=== PATIENT | female | born 1940 | race Two or more races ===

== ENCOUNTER 2017-08-05 16:27 | Inpatient (IN) | payer MEDICARE, OTHER ==
[~2017-08-05] VITALS: Ht 152.4 cm; Wt 90.0 kg
[~2017-08-05 16:27] MED LIST: AMOX-263 PO; CAR3125T PO; CLOP75TA28; DEXT1SYP9 PO; DIG0125T PO; FURO40TA; HYDR-1421; LISI10TA6; POTA8TAB2
[2017-08-05] MEDS ORDERED: ETOMIDATE (2MG/ML) 20ML VIAL IV ONE (16:30)
[2017-08-05] MEDS: MIDAZOLAM DRIP 50 mg/50mL 50 ML IV SCH ×2 (16:40→23:34)
[2017-08-05 17:11] LABS: Basophils # (auto) 0.1 uL; Basophils % (auto) 0.5 % (0.0-2.0); Eosinophils # (auto) 0.2 uL; Eosinophils % (auto) 1.6 % (0.0-7.0); Hematocrit 41.5 % (36.0-46.0); Hemoglobin 13.3 g/dL (12.2-16.2); Lymphocytes # (auto) 3.3 uL; Lymphocytes % (auto) 24.8 % (10.0-50.0); Mean Corpuscular Volume 93.8 fL (80.0-100.0); Monocytes # (auto) 0.8 uL; Monocytes % (auto) 5.7 % (0.0-12.0); Neutrophils % (auto) 67.4 % (37.0-80.0); Nucleated Red Blood Cells % 0.1 %; Platelet Count (auto) 178 10^3/uL (140-450); Red Blood Cells 4.42 10^6/uL (4.0-5.20); White Blood Cell 13.3 10^3/uL (4.4-10.8)
[2017-08-05] MEDS ORDERED: PROPOFOL 100 ML IV SCH ×2 (17:24→17:50)
[2017-08-05 17:32] LABS: Albumin 3.7 g/dL (3.4-5.0); BUN/Creatinine Ratio 22.1; Bilirubin, Total 0.8 mg/dL (0.2-1.0); Calcium 9.1 mg/dL (8.5-10.1); Magnesium 2.7 mg/dL (1.6-2.6); Potassium 5.3 mmol/L (3.5-5.1); Total Protein 8.1 g/dL (6.4-8.2)
[2017-08-05] MEDS ORDERED: AZITHROMYCIN 500MG/ 250ML 250 ML IV ONE (17:45)
[2017-08-05] MEDS ORDERED: cefTRIAXone 1GM/10ml IVPUSH 10 ML IV ONE (17:45)
[2017-08-05 17:50] LABS: Lactic Acid w/Reflex 4.8 mmol/L (0.4-2.0)
[2017-08-05 18:04] LABS: Urine Amorphous Crystal FEW /hpf (None Seen); Urine Bacteria NONE SEEN /hpf (None Seen); Urine Blood 2+ /uL (Negative); Urine Hyaline Cast MOD /lpf (0 - 2); Urine Mucus FEW (None Seen); Urine Specific Gravity 1.017 (1.001-1.035); Urine WBC 1 /hpf (0 - 5)
[2017-08-05] MEDS: PROPOFOL 100 ML IV SCH (18:07)
[2017-08-05 18:19] VITALS: BP 94/60
[2017-08-05] MEDS: NOREPINEPHRINE 8 MG/250ML KIT 250 ML IV SCH (19:25)
[2017-08-05 19:38] VITALS: BP 94/60
[2017-08-05 20:14] VITALS: BP 91/70
[2017-08-05] MEDS ORDERED: ACETAMINOPHEN 650 MG RECT SUPP PR ONE (20:45)
[2017-08-05 22:30] VITALS: BP 116/68
[2017-08-05] MEDS ORDERED: IBUPROFEN 100MG/5ML ORAL SUSP 100 MG/5 ML UD GT ONE (22:30)
[2017-08-05] MEDS ORDERED: ONDANSETRON HCL 4 MG/2 ML VIAL IV PRN (23:30)
[2017-08-05] MEDS ORDERED: LORazepam 2MG/ML-1ML VIAL IV PRN (23:30)
[2017-08-05] MEDS ORDERED: DEXTROSE (50%) 50ML SYRG IV PRN (23:30)
[2017-08-05] MEDS ORDERED: MORPHINE SULFATE 4 MG/ML SYR/VIAL IV PRN (23:30)
[2017-08-05] MEDS ORDERED: HYDROcodone-ACET 5/325MG TAB PO PRN (23:30)
[2017-08-05] MEDS ORDERED: FUROSEMIDE 20 MG/2 ML VIAL IV ONE (23:45)
[2017-08-06] VITALS (91 sets, daily range): BP systolic 83–153; BP diastolic 31–106
[2017-08-06] MEDS: ACCU-CHEK COMFORT CURVE STRIP VI SCH ×4 (00:06→23:58)
[2017-08-06] MEDS: InsuLIN REG 1unit/0.01ml Soln (100units/ml) SC SCH ×4 (00:10→23:58)
[2017-08-06] MEDS: ALBUTEROL SULF 2.5 MG/0.5ML(0.5%) NEB SOLN NEB SCH ×3 (00:25→12:32)
[2017-08-06] MEDS: IPRATROPIUM BROM 0.5 MG/2.5ML INH SOL NEB SCH ×4 (00:25→22:32)
[2017-08-06 00:50] LABS: BUN/Creatinine Ratio 22.7; Potassium 4.7 mmol/L (3.5-5.1)
[2017-08-06 07:12] LABS: Basophils # (auto) 0.1 uL; Basophils % (auto) 0.7 % (0.0-2.0); Eosinophils # (auto) 0 uL; Eosinophils % (auto) 0.2 % (0.0-7.0); Hematocrit 42.1 % (36.0-46.0); Hemoglobin 13.7 g/dL (12.2-16.2); Lymphocytes # (auto) 4.2 uL; Mean Corpuscular Hemoglobin 30.1 pg (28.0-32.0); Mean Corpuscular Hgb Conc. 32.6 g/dL (32.0-36.0); Mean Corpuscular Volume 92.3 fL (80.0-100.0); Monocytes # (auto) 1.2 uL; Monocytes % (auto) 8.2 % (0.0-12.0); Neutrophils # (auto) 9.4 uL; Neutrophils % (auto) 62.9 % (37.0-80.0); Nucleated Red Blood Cells % 0.1 %; Platelet Count (auto) 123 10^3/uL (140-450); Red Blood Cells 4.57 10^6/uL (4.0-5.20); Red Cell Distribution Width 15.9 % (11.8-14.3)
[2017-08-06] MEDS ORDERED: ENOXAPARIN SOD 30 MG/0.3 ML SYRINGE SC SCH (10:00)
[2017-08-06] MEDS ORDERED: ENOXAPARIN SOD 40 MG/0.4 ML SYRINGE SC SCH (10:00)
[2017-08-06] MEDS: DIGOXIN 0.125 MG TAB PO SCH (11:16)
[2017-08-06] MEDS: PANTOPRAZOLE 40 MG/10 ML VIAL IV SCH (11:16)
[2017-08-06] MEDS ORDERED: DIGOXIN (250MCG/ML) 2 ML AMPULE IV SCH (12:00)
[2017-08-06] MEDS ORDERED: DIGOXIN (250MCG/ML) 2 ML AMPULE IV ONE (14:00)
[2017-08-06] MEDS: PROPOFOL 100 ML IV SCH (17:48)
[2017-08-06] MEDS: NOREPINEPHRINE 8 MG/250ML KIT 250 ML IV SCH (18:55)
[2017-08-06] MEDS: DIGOXIN (250MCG/ML) 2 ML AMPULE IV SCH (20:31)
[2017-08-06] MEDS: AZITHROMYCIN 500MG/ 250ML 250 ML IV SCH (21:30)
[2017-08-06] MEDS: ACETAMINOPHEN 500 MG TAB PO PRN (21:31)
[2017-08-06] MEDS ORDERED: cefTRIAXone 1GM/10ml IVPUSH 10 ML IV SCH (22:00)
[2017-08-06] MEDS: LEVALBUTEROL HYDROCHLORIDE 0.63 MG/3 ML NEB SOLN NEB SCH (22:32)
[2017-08-07] VITALS (104 sets, daily range): BP systolic 87–168; BP diastolic 0–99
[2017-08-07] MEDS: DIGOXIN (250MCG/ML) 2 ML AMPULE IV SCH (02:04)
[2017-08-07] MEDS: PROPOFOL 100 ML IV SCH ×2 (02:30→18:30)
[2017-08-07] MEDS: ACETAMINOPHEN 500 MG TAB PO PRN (03:47)
[2017-08-07 04:05] LABS: Basophils # (auto) 0 uL; Basophils % (auto) 0.4 % (0.0-2.0); Eosinophils # (auto) 0.1 uL; Eosinophils % (auto) 1.2 % (0.0-7.0); Hematocrit 38.6 % (36.0-46.0); Hemoglobin 12.8 g/dL (12.2-16.2); Lymphocytes # (auto) 1.4 uL; Lymphocytes % (auto) 14.7 % (10.0-50.0); Mean Corpuscular Hemoglobin 30.7 pg (28.0-32.0); Mean Corpuscular Hgb Conc. 33.3 g/dL (32.0-36.0); Mean Corpuscular Volume 92.3 fL (80.0-100.0); Monocytes # (auto) 0.5 uL; Monocytes % (auto) 5.3 % (0.0-12.0); Neutrophils # (auto) 7.7 uL; Neutrophils % (auto) 78.4 % (37.0-80.0); Nucleated Red Blood Cells % 0.1 %; Platelet Count (auto) 112 10^3/uL (140-450); Red Blood Cells 4.18 10^6/uL (4.0-5.20); Red Cell Distribution Width 15.8 % (11.8-14.3); White Blood Cell 9.8 10^3/uL (4.4-10.8)
[2017-08-07 04:27] LABS: Potassium 4.5 mmol/L (3.5-5.1)
[2017-08-07 04:33] LABS: Albumin 3.4 g/dL (3.4-5.0); BUN/Creatinine Ratio 28.4; Calcium 9.2 mg/dL (8.5-10.1); Total Protein 7.9 g/dL (6.4-8.2)
[2017-08-07] MEDS: InsuLIN REG 1unit/0.01ml Soln (100units/ml) SC SCH ×3 (05:44→18:00)
[2017-08-07] MEDS: ACCU-CHEK COMFORT CURVE STRIP VI SCH ×3 (05:44→18:00)
[2017-08-07] MEDS: LEVALBUTEROL HYDROCHLORIDE 0.63 MG/3 ML NEB SOLN NEB SCH ×3 (05:56→22:30)
[2017-08-07] MEDS: IPRATROPIUM BROM 0.5 MG/2.5ML INH SOL NEB SCH ×3 (05:56→22:30)
[2017-08-07] MEDS ORDERED: OPTISON 3ml Vial for INJ IV ONE (09:21)
[2017-08-07] MEDS ORDERED: ENOXAPARIN SOD 40 MG/0.4 ML SYRINGE SC SCH (10:00)
[2017-08-07] MEDS ORDERED: CLOPIDOGREL BISULFATE 75 MG TAB GT SCH (10:00)
[2017-08-07] MEDS ORDERED: FUROSEMIDE 40 MG/4 ML VIAL IV SCH (10:00)
[2017-08-07 10:33] LABS: Prothrombin Time 10.9 sec (9.37-12.3)
[2017-08-07] MEDS: PANTOPRAZOLE 40 MG/10 ML VIAL IV SCH (10:36)
[2017-08-07] MEDS: DIGOXIN 0.125 MG TAB PO SCH (10:37)
[2017-08-07] MEDS ORDERED: FUROSEMIDE 20 MG/2 ML VIAL ONE (11:06)
[2017-08-07] MEDS: DOBUTamine 1000MCG/ML 250 ML IV SCH (16:00)
[2017-08-07] MEDS: MIDAZOLAM DRIP 50 mg/50mL 50 ML IV SCH (16:29)
[2017-08-07] MEDS: NOREPINEPHRINE 8 MG/250ML KIT 250 ML IV SCH (18:55)
[2017-08-07] MEDS ORDERED: VANCOMYCIN PER PHARMACY 0 MG IV SCH (20:30)
[2017-08-07] MEDS: VANCOMYCIN 1GM/250ML 250 ML IV SCH (22:12)
[2017-08-07] MEDS: AZITHROMYCIN 500MG/ 250ML 250 ML IV SCH (22:13)
[2017-08-08] VITALS (95 sets, daily range): BP systolic 80–127; BP diastolic 34–85
[2017-08-08] MEDS: PIPERACILLIN-TAZOB 2.25GM 50 ML IV SCH ×4 (00:17→18:17)
[2017-08-08] MEDS: ACCU-CHEK COMFORT CURVE STRIP VI SCH ×4 (00:18→17:06)
[2017-08-08] MEDS: PROPOFOL 100 ML IV SCH ×3 (01:48→21:49)
[2017-08-08 03:48] LABS: Basophils # (auto) 0.1 uL; Basophils % (auto) 0.7 % (0.0-2.0); Eosinophils # (auto) 0.3 uL; Eosinophils % (auto) 3.8 % (0.0-7.0); Hematocrit 38.3 % (36.0-46.0); Hemoglobin 12.7 g/dL (12.2-16.2); Lymphocytes # (auto) 1.6 uL; Lymphocytes % (auto) 20.3 % (10.0-50.0); Mean Corpuscular Hemoglobin 29.9 pg (28.0-32.0); Mean Corpuscular Hgb Conc. 33.1 g/dL (32.0-36.0); Mean Corpuscular Volume 90.4 fL (80.0-100.0); Monocytes # (auto) 0.7 uL; Monocytes % (auto) 8.9 % (0.0-12.0); Neutrophils # (auto) 5.1 uL; Neutrophils % (auto) 66.3 % (37.0-80.0); Nucleated Red Blood Cells % 0.1 %; Platelet Count (auto) 113 10^3/uL (140-450); Red Blood Cells 4.24 10^6/uL (4.0-5.20); Red Cell Distribution Width 15.6 % (11.8-14.3); White Blood Cell 7.7 10^3/uL (4.4-10.8)
[2017-08-08 04:00] LABS: Potassium 3.6 mmol/L (3.5-5.1)
[2017-08-08 04:03] LABS: BUN/Creatinine Ratio 34.8
[2017-08-08 04:13] LABS: Total Protein 6.9 g/dL (6.4-8.2)
[2017-08-08] MEDS: LEVALBUTEROL HYDROCHLORIDE 0.63 MG/3 ML NEB SOLN NEB SCH (05:52)
[2017-08-08] MEDS: IPRATROPIUM BROM 0.5 MG/2.5ML INH SOL NEB SCH ×3 (05:52→22:19)
[2017-08-08] MEDS: InsuLIN REG 1unit/0.01ml Soln (100units/ml) SC SCH ×4 (06:00→18:47)
[2017-08-08 07:21] LABS: Urine Bacteria MOD /hpf (None Seen); Urine Blood 3+ /uL (Negative); Urine Mucus FEW (None Seen); Urine Specific Gravity 1.024 (1.001-1.035); Urine WBC 30 /hpf (0 - 5)
[2017-08-08] MEDS: DOBUTamine 1000MCG/ML 250 ML IV SCH ×2 (07:58→23:00)
[2017-08-08] MEDS ORDERED: FUROSEMIDE 40 MG/4 ML VIAL IV SCH (10:00)
[2017-08-08] MEDS ORDERED: Diabetisource AC 1 Liter GT SCH (10:30)
[2017-08-08] MEDS: CLOPIDOGREL BISULFATE 75 MG TAB GT SCH (10:45)
[2017-08-08] MEDS: POTASSIUM CHL 10% (20 MEQ/15ML) 15ml ORAL SOLN GT SCH ×2 (10:52→22:15)
[2017-08-08] MEDS: DIGOXIN 0.125 MG TAB PO SCH (10:53)
[2017-08-08] MEDS: PANTOPRAZOLE 40 MG/10 ML VIAL IV SCH (10:53)
[2017-08-08] MEDS: NOREPINEPHRINE 8 MG/250ML KIT 250 ML IV SCH ×2 (11:00→21:49)
[2017-08-08] MEDS: FREE WATER GT SCH ×2 (12:07→18:17)
[2017-08-08] MEDS: LEVALBUTEROL HCL 1.25 MG/3 ML NEB IN SCH ×2 (13:32→22:20)
[2017-08-08] MEDS: MIDAZOLAM DRIP 50 mg/50mL 50 ML IV SCH (17:06)
[2017-08-08] MEDS: FUROSEMIDE 40 MG/4 ML VIAL IV SCH ×2 (18:36→22:15)
[2017-08-08] MEDS: AZITHROMYCIN 500MG/ 250ML 250 ML IV SCH (22:16)
[2017-08-08] MEDS: VANCOMYCIN 1GM/250ML 250 ML IV SCH (22:30)
[2017-08-09] VITALS (88 sets, daily range): BP systolic 87–142; BP diastolic 34–91
[2017-08-09] MEDS: PROPOFOL 100 ML IV SCH (00:05)
[2017-08-09] MEDS: IPRATROPIUM BROM 0.5 MG/2.5ML INH SOL NEB SCH ×3 (05:50→22:39)
[2017-08-09] MEDS: FREE WATER GT SCH ×4 (06:00→17:58)
[2017-08-09] MEDS: InsuLIN REG 1unit/0.01ml Soln (100units/ml) SC SCH ×2 (06:00→17:58)
[2017-08-09] MEDS: DOBUTamine 1000MCG/ML 250 ML IV SCH ×2 (06:10→13:40)
[2017-08-09] MEDS: PIPERACILLIN-TAZOB 2.25GM 50 ML IV SCH ×4 (06:26→17:58)
[2017-08-09] MEDS: FUROSEMIDE 40 MG/4 ML VIAL IV SCH ×3 (06:26→21:00)
[2017-08-09] MEDS: ACCU-CHEK COMFORT CURVE STRIP VI SCH ×2 (06:26→17:59)
[2017-08-09 07:33] LABS: Basophils # (auto) 0 uL; Basophils % (auto) 0.6 % (0.0-2.0); Eosinophils # (auto) 0.3 uL; Eosinophils % (auto) 4.6 % (0.0-7.0); Hematocrit 38.9 % (36.0-46.0); Hemoglobin 12.9 g/dL (12.2-16.2); Lymphocytes # (auto) 1.2 uL; Lymphocytes % (auto) 20.3 % (10.0-50.0); Mean Corpuscular Hemoglobin 30.1 pg (28.0-32.0); Mean Corpuscular Hgb Conc. 33.2 g/dL (32.0-36.0); Mean Corpuscular Volume 90.5 fL (80.0-100.0); Monocytes # (auto) 0.7 uL; Monocytes % (auto) 11.1 % (0.0-12.0); Neutrophils # (auto) 3.9 uL; Neutrophils % (auto) 63.4 % (37.0-80.0); Platelet Count (auto) 138 10^3/uL (140-450); Red Cell Distribution Width 15.6 % (11.8-14.3); White Blood Cell 6.2 10^3/uL (4.4-10.8)
[2017-08-09 07:49] LABS: BUN/Creatinine Ratio 30.9; Bilirubin, Total 0.8 mg/dL (0.2-1.0); Calcium 9.2 mg/dL (8.5-10.1); Potassium 3.9 mmol/L (3.5-5.1); Total Protein 7.4 g/dL (6.4-8.2)
[2017-08-09] MEDS: DIGOXIN 0.125 MG TAB PO SCH (10:00)
[2017-08-09] MEDS: CLOPIDOGREL BISULFATE 75 MG TAB GT SCH (10:00)
[2017-08-09] MEDS: POTASSIUM CHL 10% (20 MEQ/15ML) 15ml ORAL SOLN GT SCH ×2 (10:00→22:00)
[2017-08-09] MEDS: PANTOPRAZOLE 40 MG/10 ML VIAL IV SCH (10:00)
[2017-08-09] MEDS: DEXMEDETOMIDINE HCL 400 MCG in D5W 5% 96 ML IV SCH (11:37)
[2017-08-09] MEDS: MIDAZOLAM DRIP 50 mg/50mL 50 ML IV SCH (16:29)
[2017-08-09] MEDS: NOREPINEPHRINE 8 MG/250ML KIT 250 ML IV SCH (19:39)
[2017-08-09] MEDS: AZITHROMYCIN 500MG/ 250ML 250 ML IV SCH (21:01)
[2017-08-09] MEDS: VANCOMYCIN 1GM/250ML 250 ML IV SCH (22:00)
[2017-08-09] MEDS: LEVALBUTEROL HCL 1.25 MG/3 ML NEB IN SCH (22:39)
[2017-08-10] VITALS (74 sets, daily range): BP systolic 92–135; BP diastolic 36–77
[2017-08-10] MEDS: DOBUTamine 1000MCG/ML 250 ML IV SCH ×2 (05:03→21:49)
[2017-08-10] MEDS: FREE WATER GT SCH ×3 (05:41→12:00)
[2017-08-10] MEDS: PIPERACILLIN-TAZOB 2.25GM 50 ML IV SCH ×4 (05:42→18:00)
[2017-08-10] MEDS: FUROSEMIDE 40 MG/4 ML VIAL IV SCH ×3 (05:42→21:51)
[2017-08-10] MEDS: InsuLIN REG 1unit/0.01ml Soln (100units/ml) SC SCH ×2 (06:00→18:10)
[2017-08-10] MEDS: ACCU-CHEK COMFORT CURVE STRIP VI SCH ×2 (06:00→18:10)
[2017-08-10] MEDS: LEVALBUTEROL HCL 1.25 MG/3 ML NEB IN SCH ×3 (06:23→22:24)
[2017-08-10] MEDS: IPRATROPIUM BROM 0.5 MG/2.5ML INH SOL NEB SCH ×3 (06:23→22:24)
[2017-08-10] MEDS: DEXMEDETOMIDINE HCL 400 MCG in D5W 5% 96 ML IV SCH (08:46)
[2017-08-10] MEDS: CLOPIDOGREL BISULFATE 75 MG TAB GT SCH (10:25)
[2017-08-10] MEDS: PANTOPRAZOLE 40 MG/10 ML VIAL IV SCH (10:25)
[2017-08-10] MEDS: POTASSIUM CHL 10% (20 MEQ/15ML) 15ml ORAL SOLN GT SCH ×2 (10:25→21:50)
[2017-08-10] MEDS: DIGOXIN 0.125 MG TAB PO SCH (10:26)
[2017-08-10] MEDS: NOREPINEPHRINE 8 MG/250ML KIT 250 ML IV SCH (18:55)
[2017-08-10] MEDS: AZITHROMYCIN 500MG/ 250ML 250 ML IV SCH (21:51)
[2017-08-10] MEDS: VANCOMYCIN 1GM/250ML 250 ML IV SCH (23:41)
[2017-08-11] VITALS (41 sets, daily range): BP systolic 107–154; BP diastolic 46–87
[2017-08-11] MEDS: IPRATROPIUM BROM 0.5 MG/2.5ML INH SOL NEB SCH (05:44)
[2017-08-11] MEDS: LEVALBUTEROL HCL 1.25 MG/3 ML NEB IN SCH (05:44)
[2017-08-11] MEDS: ACCU-CHEK COMFORT CURVE STRIP VI SCH (06:00)
[2017-08-11] MEDS: PIPERACILLIN-TAZOB 2.25GM 50 ML IV SCH ×2 (06:00)
[2017-08-11] MEDS: InsuLIN REG 1unit/0.01ml Soln (100units/ml) SC SCH (06:00)
[2017-08-11] MEDS: FUROSEMIDE 40 MG/4 ML VIAL IV SCH ×2 (06:30→13:52)
[2017-08-11] MEDS: CLOPIDOGREL BISULFATE 75 MG TAB GT SCH (10:29)
[2017-08-11] MEDS: POTASSIUM CHL 10% (20 MEQ/15ML) 15ml ORAL SOLN GT SCH (10:29)
[2017-08-11] MEDS: DIGOXIN 0.125 MG TAB PO SCH (10:29)
[2017-08-11] MEDS: PANTOPRAZOLE 40 MG/10 ML VIAL IV SCH (10:29)
[2017-08-11] MEDS ORDERED: METO50TA7 PO (10:58)
[2017-08-11] MEDS ORDERED: POTA10TA51 PO (10:58)
[2017-08-11] MEDS ORDERED: FURO40TA4 PO (10:58)
[2017-08-11] MEDS ORDERED: METOPROLOL SUCCINATE XL 50 MG TAB PO ONE (11:00)
[2017-08-11] MEDS ORDERED: VANCOMYCIN 1,250 MG in D5W 5% 250 ML IV SCH (22:00)
[2017-08-12] MEDS ORDERED: METOPROLOL SUCCINATE XL 50 MG TAB PO SCH (10:00)
[2017-08-29] MEDS ORDERED: PANT40T PO (11:01)
== END 2017-08-11 13:35 | disposition home health service (06) | DRG 871 ==
LOC: EDBD 16:27 → ER 16:27 → TELE 16:28 → ICU WEST 23:54
PROVIDERS: ADMIT Nurse Practitioner Family; ATTEND Internal Medicine
PROC: 5A1945Z Respiratory Ventilation, 24-96 Consecutive Hours (ICD-10-PCS; principal; 2017-08-05)
PROC: 0BH17EZ Insertion of Endotracheal Airway into Trachea, Via Natural or Artificial Opening (ICD-10-PCS; 2017-08-05)
DX: A41.9 Sepsis, unspecified organism (principal); J96.01 Acute respiratory failure with hypoxia; I50.43 Acute on chronic combined systolic (congestive) and diastolic (congestive) heart failure; N17.9 Acute kidney failure, unspecified; J18.9 Pneumonia, unspecified organism; E11.22 Type 2 diabetes mellitus with diabetic chronic kidney disease; I48.0 Paroxysmal atrial fibrillation; E11.65 Type 2 diabetes mellitus with hyperglycemia; I48.1 Persistent atrial fibrillation; I13.0 Hypertensive heart and chronic kidney disease with heart failure and stage 1 through stage 4 chronic kidney disease, or unspecified chronic kidney disease; I48.92 Unspecified atrial flutter; J44.0 Chronic obstructive pulmonary disease with (acute) lower respiratory infection; I42.0 Dilated cardiomyopathy; I42.7 Cardiomyopathy due to drug and external agent; N39.0 Urinary tract infection, site not specified; E87.5 Hyperkalemia; Z68.38 Body mass index [BMI] 38.0-38.9, adult; E66.9 Obesity, unspecified; E78.5 Hyperlipidemia, unspecified; G20 Parkinson's disease; G47.30 Sleep apnea, unspecified; I25.10 Atherosclerotic heart disease of native coronary artery without angina pectoris; I25.5 Ischemic cardiomyopathy; I27.20 Pulmonary hypertension, unspecified; I34.0 Nonrheumatic mitral (valve) insufficiency; K42.9 Umbilical hernia without obstruction or gangrene; K43.9 Ventral hernia without obstruction or gangrene; N18.3 Chronic kidney disease, stage 3 (moderate); T45.1X5A Adverse effect of antineoplastic and immunosuppressive drugs, initial encounter; Z79.899 Other long term (current) drug therapy; Z85.3 Personal history of malignant neoplasm of breast; Z86.73 Personal history of transient ischemic attack (TIA), and cerebral infarction without residual deficits; Z99.81 Dependence on supplemental oxygen; Z90.12 Acquired absence of left breast and nipple
CPT/HCPCS: 31500; 36415; 36600; 71045; 80048; 80053; 80162; 80202; 81001; 82805; 82962; 83036; 83605; 83735; 83880; 84484; 85025; 85379; 85610; 85730; 87040; 87070; 87081; 87086; 87205; 92610; 93005; 93306; 94002; 94003; 94640; 96365; 96366; 97163; 99291; C9113; J1815; J2250; J2543; J2704; J7060; Q9956

== ENCOUNTER 2017-12-13 19:29 | Inpatient (IN) | payer MEDICARE ==
[~2017-12-13] VITALS: Ht 160 cm; Wt 88.0 kg
[~2017-12-13 19:29] MED LIST changes: -AMOX-263 PO; -CAR3125T PO; -CLOP75TA28; -DEXT1SYP9 PO; -FURO40TA; +FURO40TA4 PO; +LEVO500T21 PO; +MET5XLT PO; +METF-370 PO; +PANT40T PO; +POTA10TA51 PO; -POTA8TAB2; +SACC250C PO
[2017-12-13 19:45] VITALS: BP 129/91
[2017-12-13] MEDS ORDERED: ETOMIDATE (2MG/ML) 20ML VIAL IV ONE ×2 (19:46→20:00)
[2017-12-13] MEDS ORDERED: SUCCINYLCHOLINE CHLORIDE 20 MG/ML 10ML VIAL IV ONE (20:00)
[2017-12-13] MEDS ORDERED: DILTIAZEM HCL 25 MG/5 ML VIAL IV ONE ×2 (20:00→20:45)
[2017-12-13] MEDS ORDERED: methylPREDNISolone SOD SUCC 125 MG/2 ML VL IV ONE (20:00)
[2017-12-13] MEDS: PROPOFOL 100 ML IV SCH (20:19)
[2017-12-13] MEDS ORDERED: ROCURONIUM 10MG/ML 10ML VIAL IV ONE ×2 (20:34→20:45)
[2017-12-13 20:35] LABS: Basophils # (auto) 0.1 uL; Basophils % (auto) 0.6 % (0.0-2.0); Eosinophils # (auto) 0.3 uL; Hematocrit 38.1 % (36.0-46.0); Hemoglobin 12.2 g/dL (12.2-16.2); Lymphocytes # (auto) 7.2 uL; Mean Corpuscular Hemoglobin 28.8 pg (28.0-32.0); Monocytes % (auto) 6.3 % (0.0-12.0); Neutrophils # (auto) 7.4 uL; Neutrophils % (auto) 46.1 % (37.0-80.0); Nucleated Red Blood Cells % 0.1 %; Platelet Count (auto) 196 10^3/uL (140-450); Red Blood Cells 4.23 10^6/uL (4.0-5.20); Red Cell Distribution Width 17.4 % (11.8-14.3); White Blood Cell 16.1 10^3/uL (4.4-10.8)
[2017-12-13 20:47] LABS: Albumin 4.2 g/dL (3.4-5.0); BUN/Creatinine Ratio 22.5; Bilirubin, Total 0.5 mg/dL (0.2-1.0); Calcium 9.7 mg/dL (8.5-10.1); INR 0.93 (0.9-1.15); Magnesium 2.8 mg/dL (1.6-2.6); Partial Thromboplastin Time 26.6 sec (23.78-33.04); Potassium 4.5 mmol/L (3.5-5.1); Total Protein 8.7 g/dL (6.4-8.2)
[2017-12-13] MEDS ORDERED: METOPROLOL TARTRATE 1MG/1ML-5ML VIAL IV ONE (21:15)
[2017-12-13 23:15] LABS: Lactic Acid w/Reflex 4.9 mmol/L (0.4-2.0)
[2017-12-13] MEDS ORDERED: LEVOFLOXACIN 250MG 50 ML IV ONE (23:15)
[2017-12-13] MEDS ORDERED: FUROSEMIDE 40 MG/4 ML VIAL IV ONE (23:15)
[2017-12-13] MEDS ORDERED: ONDANSETRON HCL 4 MG/2 ML VIAL IV PRN (23:15)
[2017-12-13] MEDS ORDERED: ALBUTEROL SULF 2.5 MG/0.5ML(0.5%) NEB SOLN NEB PRN (23:15)
[2017-12-13] MEDS ORDERED: DEXTROSE (50%) 50ML SYRG IV PRN (23:15)
[2017-12-13] MEDS ORDERED: MORPHINE SULF INJ 2 MG/ML SYRINGE 1ML IV PRN (23:15)
[2017-12-13] MEDS ORDERED: NITROGLYCERIN 0.4 MG SL TAB SL PRN (23:15)
[2017-12-13] MEDS ORDERED: IPRATROPIUM BROM 0.5 MG/2.5ML INH SOL NEB PRN (23:15)
[2017-12-13] MEDS: MIDAZOLAM DRIP 50 mg/50mL 50 ML IV SCH (23:30)
[2017-12-13] MEDS: fentaNYL Drip 2500mCg/250mlNS 250 ML IV SCH (23:30)
[2017-12-13] MEDS ORDERED: AMIODARONE HCL 900 MG in DEXTROSE 500 ML IV SCH (23:43)
[2017-12-13] MEDS ORDERED: AMIODARONE HCL 150 MG in D5W 5% 100 ML IV ONE (23:45)
[2017-12-13] MEDS ORDERED: SODIUM CHLORIDE 0.9% 500 ML IV ONE (23:45)
[2017-12-13] MEDS ORDERED: MIDAZOLAM DRIP 50 mg/50mL 50 ML IV ONE (23:50)
[2017-12-13] MEDS ORDERED: fentaNYL Drip 2500mCg/250mlNS 250 ML IV ONE (23:51)
[2017-12-14] VITALS (73 sets, daily range): BP systolic 87–169; BP diastolic 53–94
[2017-12-14] MEDS ORDERED: AMIODARONE HCL (50 MG/ ML) 3 ML VIAL IV ONE ×2 (00:27→00:28)
[2017-12-14] MEDS: InsuLIN REG 1unit/0.01ml Soln (100units/ml) SC SCH ×4 (00:29→18:23)
[2017-12-14] MEDS: ACCU-CHEK COMFORT CURVE STRIP VI SCH ×4 (00:29→18:23)
[2017-12-14] MEDS: NOREPINEPHRINE 8 MG/250ML KIT 250 ML IV SCH ×2 (01:37→12:11)
[2017-12-14] MEDS: SODIUM CHLORIDE 0.9% 1,000 ML IV SCH ×2 (01:50→16:25)
[2017-12-14 02:50] LABS: Urine Bacteria MOD /hpf (None Seen); Urine Blood 2+ /uL (Negative); Urine Hyaline Cast MANY /lpf (0 - 2); Urine Mucus FEW (None Seen); Urine Specific Gravity 1.011 (1.001-1.035); Urine WBC 1 /hpf (0 - 5)
[2017-12-14] MEDS ORDERED: AMIODARONE HCL 900 MG in DEXTROSE 500 ML IV SCH (05:43)
[2017-12-14 07:22] LABS: Basophils # (auto) 0 uL; Eosinophils # (auto) 0 uL; Hematocrit 38.6 % (36.0-46.0); Hemoglobin 12.2 g/dL (12.2-16.2); Lymphocytes # (auto) 1.9 uL; Lymphocytes % (auto) 9.6 % (10.0-50.0); Mean Corpuscular Hemoglobin 27.9 pg (28.0-32.0); Mean Corpuscular Hgb Conc. 31.6 g/dL (32.0-36.0); Mean Corpuscular Volume 88.2 fL (80.0-100.0); Monocytes # (auto) 0.3 uL; Monocytes % (auto) 1.5 % (0.0-12.0); Neutrophils # (auto) 17.9 uL; Neutrophils % (auto) 88.9 % (37.0-80.0); Platelet Count (auto) 198 10^3/uL (140-450); Red Blood Cells 4.38 10^6/uL (4.0-5.20); Red Cell Distribution Width 17.5 % (11.8-14.3); White Blood Cell 20.1 10^3/uL (4.4-10.8)
[2017-12-14] MEDS ORDERED: ENOXAPARIN SOD 80 MG/0.8ML SYRINGE SC ONE (07:30)
[2017-12-14 07:56] LABS: Albumin 3.4 g/dL (3.4-5.0); BUN/Creatinine Ratio 19.3; Bilirubin, Total 0.7 mg/dL (0.2-1.0); Calcium 8.9 mg/dL (8.5-10.1); Potassium 5.5 mmol/L (3.5-5.1); Total Protein 7.7 g/dL (6.4-8.2)
[2017-12-14] MEDS ORDERED: METOPROLOL TARTRATE 1MG/1ML-5ML VIAL IV ONE (10:25)
[2017-12-14] MEDS: ASPirin 81 mg TAB PO SCH (10:30)
[2017-12-14] MEDS: MIDAZOLAM DRIP 50 mg/50mL 50 ML IV SCH (10:30)
[2017-12-14] MEDS: METOPROLOL TARTRATE 1MG/1ML-5ML VIAL IV PRN ×2 (14:38→18:42)
[2017-12-14] MEDS: fentaNYL Drip 2500mCg/250mlNS 250 ML IV SCH (18:00)
[2017-12-14] MEDS ORDERED: DILTIAZEM 125mg/125ml BAG KIT 125 ML IV SCH (18:30)
[2017-12-14] MEDS ORDERED: DIGOXIN (250MCG/ML) 2 ML AMPULE ONE (18:51)
[2017-12-14] MEDS ORDERED: DIGOXIN (250MCG/ML) 2 ML AMPULE IV ONE ×2 (19:00→21:45)
[2017-12-14] MEDS ORDERED: VANCOMYCIN PER PHARMACY 0 MG IV SCH (19:30)
[2017-12-14] MEDS ORDERED: LEVOFLOXACIN 250MG 50 ML IV SCH (20:00)
[2017-12-14] MEDS ORDERED: VANCOMYCIN 1GM/250ML 250 ML IV ONE (21:30)
[2017-12-15] VITALS (107 sets, daily range): BP systolic 85–159; BP diastolic 31–109
[2017-12-15] MEDS: IPRATROPIUM BROM 0.5 MG/2.5ML INH SOL NEB SCH ×4 (00:21→18:27)
[2017-12-15] MEDS: ALBUTEROL SULF 2.5 MG/0.5ML(0.5%) NEB SOLN NEB SCH ×4 (00:21→18:28)
[2017-12-15] MEDS: ACCU-CHEK COMFORT CURVE STRIP VI SCH ×4 (00:45→18:00)
[2017-12-15] MEDS: InsuLIN REG 1unit/0.01ml Soln (100units/ml) SC SCH ×4 (01:13→19:04)
[2017-12-15 03:56] LABS: Basophils # (auto) 0 uL; Basophils % (auto) 0.3 % (0.0-2.0); Eosinophils # (auto) 0 uL; Hemoglobin 11.1 g/dL (12.2-16.2); Lymphocytes # (auto) 1.9 uL; Mean Corpuscular Hemoglobin 28.1 pg (28.0-32.0); Mean Corpuscular Hgb Conc. 31.7 g/dL (32.0-36.0); Mean Corpuscular Volume 88.7 fL (80.0-100.0); Monocytes % (auto) 7.5 % (0.0-12.0); Neutrophils # (auto) 10.4 uL; Neutrophils % (auto) 78.2 % (37.0-80.0); Nucleated Red Blood Cells % 0.1 %; Platelet Count (auto) 135 10^3/uL (140-450); Red Blood Cells 3.94 10^6/uL (4.0-5.20); Red Cell Distribution Width 17.4 % (11.8-14.3); White Blood Cell 13.3 10^3/uL (4.4-10.8)
[2017-12-15 04:11] LABS: INR 1.05 (0.9-1.15); Partial Thromboplastin Time 27.6 sec (23.78-33.04); Prothrombin Time 11.2 sec (9.27-12.13)
[2017-12-15 04:13] LABS: Calcium 8.2 mg/dL (8.5-10.1); Magnesium 2.4 mg/dL (1.6-2.6)
[2017-12-15 04:15] LABS: BUN/Creatinine Ratio 21.9
[2017-12-15 04:23] LABS: Lactic Acid w/Reflex 2.3 mmol/L (0.4-2.0)
[2017-12-15 04:35] LABS: Potassium 5.9 mmol/L (3.5-5.1)
[2017-12-15] MEDS: SODIUM CHLORIDE 0.9% 1,000 ML IV SCH ×2 (09:05→18:00)
[2017-12-15] MEDS: ASPirin 81 mg TAB PO SCH (10:06)
[2017-12-15] MEDS: cefTRIAXone 1GM/10ml IVPUSH 10 ML IV SCH (10:08)
[2017-12-15] MEDS: AZITHROMYCIN 500MG/ 250ML 250 ML IV SCH (10:11)
[2017-12-15] MEDS: ENOXAPARIN SOD 80 MG/0.8ML SYRINGE SC SCH (10:12)
[2017-12-15] MEDS ORDERED: SODIUM BICARBONATE 8.4 % INJ 50ML VIAL IV ONE (14:30)
[2017-12-15] MEDS ORDERED: InsuLIN REG 1unit/0.01ml Soln (100units/ml) SC ONE (14:30)
[2017-12-15] MEDS ORDERED: DEXTROSE (50%) 50ML SYRG IV ONE (14:30)
[2017-12-15] MEDS ORDERED: SODIUM POLYSTYRENE SULF 15GM/60ML SUSP PO ONE (14:30)
[2017-12-15] MEDS ORDERED: CALCIUM GLUC 4.65meq/50ml D5AE 50 ML IV ONE (14:30)
[2017-12-15] MEDS ORDERED: SODIUM BICARB 50ML SYR 50 ML in SOD CHL 0.45% 1,000 ML IV SCH (14:30)
[2017-12-15] MEDS ORDERED: LIDOCAINE 1% (LOCAL ANESTH.) PF 5ml SDV ID ONE (19:00)
[2017-12-15] MEDS ORDERED: VANCOMYCIN 1GM/250ML 250 ML IV ONE (21:00)
[2017-12-15 21:56] LABS: BUN/Creatinine Ratio 24.3; Calcium 8.2 mg/dL (8.5-10.1); Potassium 4.7 mmol/L (3.5-5.1)
[2017-12-15] MEDS: SODIUM CHLOR 0.9% PF (SALINE LOCK) 10ML VIAL/SYR IV SCH (22:00)
[2017-12-16] VITALS (118 sets, daily range): BP systolic 93–151; BP diastolic 30–75
[2017-12-16] MEDS: IPRATROPIUM BROM 0.5 MG/2.5ML INH SOL NEB SCH ×4 (00:24→18:30)
[2017-12-16] MEDS: ALBUTEROL SULF 2.5 MG/0.5ML(0.5%) NEB SOLN NEB SCH ×4 (00:24→18:30)
[2017-12-16 04:00] LABS: Basophils # (auto) 0 uL; Basophils % (auto) 0.4 % (0.0-2.0); Eosinophils # (auto) 0 uL; Eosinophils % (auto) 0.4 % (0.0-7.0); Hematocrit 28.1 % (36.0-46.0); Hemoglobin 9.2 g/dL (12.2-16.2); Lymphocytes # (auto) 1.2 uL; Lymphocytes % (auto) 11.5 % (10.0-50.0); Mean Corpuscular Hemoglobin 28.8 pg (28.0-32.0); Mean Corpuscular Volume 87.4 fL (80.0-100.0); Monocytes # (auto) 0.5 uL; Monocytes % (auto) 5.1 % (0.0-12.0); Neutrophils # (auto) 8.9 uL; Neutrophils % (auto) 82.6 % (37.0-80.0); Platelet Count (auto) 94 10^3/uL (140-450); Red Blood Cells 3.21 10^6/uL (4.0-5.20); Red Cell Distribution Width 17.8 % (11.8-14.3); White Blood Cell 10.7 10^3/uL (4.4-10.8)
[2017-12-16 04:24] LABS: Albumin 2.7 g/dL (3.4-5.0); BUN/Creatinine Ratio 25.3; Calcium 8.1 mg/dL (8.5-10.1); Potassium 4.4 mmol/L (3.5-5.1)
[2017-12-16 04:26] LABS: Bilirubin, Total 0.5 mg/dL (0.2-1.0); Total Protein 5.5 g/dL (6.4-8.2)
[2017-12-16] MEDS: InsuLIN REG 1unit/0.01ml Soln (100units/ml) SC SCH ×4 (06:00→18:00)
[2017-12-16] MEDS: ACCU-CHEK COMFORT CURVE STRIP VI SCH ×4 (06:18→18:15)
[2017-12-16] MEDS: ENOXAPARIN SOD 80 MG/0.8ML SYRINGE SC SCH (10:00)
[2017-12-16] MEDS: ASPirin 81 mg TAB PO SCH (10:43)
[2017-12-16] MEDS: cefTRIAXone 1GM/10ml IVPUSH 10 ML IV SCH (10:44)
[2017-12-16] MEDS: AZITHROMYCIN 500MG/ 250ML 250 ML IV SCH (10:44)
[2017-12-16] MEDS: MIDAZOLAM DRIP 50 mg/50mL 50 ML IV SCH ×2 (10:46→18:17)
[2017-12-16] MEDS: SODIUM CHLOR 0.9% PF (SALINE LOCK) 10ML VIAL/SYR IV SCH ×2 (10:47→21:39)
[2017-12-16] MEDS: SODIUM CHLORIDE 0.9% 1,000 ML IV SCH ×2 (10:47→14:00)
[2017-12-16] MEDS: AMIODARONE HCL 200 MG TAB PO SCH ×2 (15:35→21:39)
[2017-12-16] MEDS: PROPOFOL 100 ML IV SCH (19:59)
[2017-12-16] MEDS: fentaNYL Drip 2500mCg/250mlNS 250 ML IV SCH (23:30)
[2017-12-17] VITALS (85 sets, daily range): BP systolic 110–186; BP diastolic 47–117
[2017-12-17] MEDS: SODIUM CHLORIDE 0.9% 1,000 ML IV SCH ×3 (00:15→23:02)
[2017-12-17] MEDS: ACCU-CHEK COMFORT CURVE STRIP VI SCH ×5 (00:15→23:51)
[2017-12-17] MEDS: IPRATROPIUM BROM 0.5 MG/2.5ML INH SOL NEB SCH ×4 (00:20→18:32)
[2017-12-17] MEDS: ALBUTEROL SULF 2.5 MG/0.5ML(0.5%) NEB SOLN NEB SCH ×4 (00:20→18:33)
[2017-12-17] MEDS: NOREPINEPHRINE 8 MG/250ML KIT 250 ML IV SCH (00:52)
[2017-12-17] MEDS: InsuLIN REG 1unit/0.01ml Soln (100units/ml) SC SCH ×5 (06:30→23:51)
[2017-12-17 07:04] LABS: Basophils # (auto) 0 uL; Basophils % (auto) 0.3 % (0.0-2.0); Eosinophils # (auto) 0.1 uL; Eosinophils % (auto) 1.4 % (0.0-7.0); Hematocrit 28.7 % (36.0-46.0); Hemoglobin 9.6 g/dL (12.2-16.2); Lymphocytes % (auto) 11.1 % (10.0-50.0); Mean Corpuscular Hemoglobin 29.3 pg (28.0-32.0); Mean Corpuscular Hgb Conc. 33.4 g/dL (32.0-36.0); Mean Corpuscular Volume 87.5 fL (80.0-100.0); Monocytes # (auto) 0.5 uL; Monocytes % (auto) 5.1 % (0.0-12.0); Neutrophils # (auto) 7.5 uL; Neutrophils % (auto) 82.1 % (37.0-80.0); Platelet Count (auto) 94 10^3/uL (140-450); Red Blood Cells 3.28 10^6/uL (4.0-5.20); Red Cell Distribution Width 17.7 % (11.8-14.3); White Blood Cell 9.2 10^3/uL (4.4-10.8)
[2017-12-17 07:40] LABS: Albumin 2.7 g/dL (3.4-5.0); BUN/Creatinine Ratio 26.6; Calcium 8.2 mg/dL (8.5-10.1); Total Protein 6.1 g/dL (6.4-8.2)
[2017-12-17] MEDS ORDERED: VANCOMYCIN PER PHARMACY 0 MG IV ONE (08:30)
[2017-12-17] MEDS ORDERED: VANCOMYCIN 1GM/250ML 250 ML IV ONE (09:00)
[2017-12-17] MEDS ORDERED: VANCOMYCIN PER PHARMACY 0 MG IV SCH (09:15)
[2017-12-17] MEDS: VANCOMYCIN 1GM/250ML 250 ML IV SCH (09:49)
[2017-12-17] MEDS: AZITHROMYCIN 500MG/ 250ML 250 ML IV SCH (09:49)
[2017-12-17] MEDS: AMIODARONE HCL 200 MG TAB PO SCH ×2 (09:50→22:34)
[2017-12-17] MEDS: ASPirin 81 mg TAB PO SCH (09:50)
[2017-12-17] MEDS: ENOXAPARIN SOD 80 MG/0.8ML SYRINGE SC SCH (09:50)
[2017-12-17] MEDS: cefTRIAXone 1GM/10ml IVPUSH 10 ML IV SCH (09:50)
[2017-12-17] MEDS: SODIUM CHLOR 0.9% PF (SALINE LOCK) 10ML VIAL/SYR IV SCH ×2 (10:00→22:33)
[2017-12-17] MEDS: PROPOFOL 100 ML IV SCH (18:30)
[2017-12-17] MEDS: ACETYLCYSTEINE 10 %(100MG/ML) SOL 4ML NEB SCH (18:36)
[2017-12-17] MEDS: MIDAZOLAM DRIP 50 mg/50mL 50 ML IV SCH (23:30)
[2017-12-17] MEDS: fentaNYL Drip 2500mCg/250mlNS 250 ML IV SCH (23:30)
[2017-12-18] VITALS (90 sets, daily range): BP systolic 106–160; BP diastolic 41–104
[2017-12-18] MEDS: ACETYLCYSTEINE 10 %(100MG/ML) SOL 4ML NEB SCH ×4 (00:30→18:19)
[2017-12-18] MEDS: IPRATROPIUM BROM 0.5 MG/2.5ML INH SOL NEB SCH ×4 (00:30→18:18)
[2017-12-18] MEDS: ALBUTEROL SULF 2.5 MG/0.5ML(0.5%) NEB SOLN NEB SCH ×4 (00:30→18:18)
[2017-12-18] MEDS: NOREPINEPHRINE 8 MG/250ML KIT 250 ML IV SCH (01:23)
[2017-12-18] MEDS: SODIUM CHLORIDE 0.9% 1,000 ML IV SCH ×2 (06:00→08:58)
[2017-12-18] MEDS: InsuLIN REG 1unit/0.01ml Soln (100units/ml) SC SCH ×3 (06:30→17:30)
[2017-12-18] MEDS: ACCU-CHEK COMFORT CURVE STRIP VI SCH ×3 (06:30→17:31)
[2017-12-18 07:00] LABS: Basophils # (auto) 0 uL; Basophils % (auto) 0.5 % (0.0-2.0); Eosinophils # (auto) 0.2 uL; Eosinophils % (auto) 2.8 % (0.0-7.0); Hematocrit 26.3 % (36.0-46.0); Hemoglobin 8.8 g/dL (12.2-16.2); Lymphocytes # (auto) 0.8 uL; Lymphocytes % (auto) 11.8 % (10.0-50.0); Mean Corpuscular Hemoglobin 29.5 pg (28.0-32.0); Mean Corpuscular Hgb Conc. 33.5 g/dL (32.0-36.0); Mean Corpuscular Volume 87.9 fL (80.0-100.0); Monocytes # (auto) 0.4 uL; Monocytes % (auto) 6.5 % (0.0-12.0); Neutrophils # (auto) 5.4 uL; Neutrophils % (auto) 78.4 % (37.0-80.0); Platelet Count (auto) 99 10^3/uL (140-450); Red Cell Distribution Width 17.6 % (11.8-14.3); White Blood Cell 6.9 10^3/uL (4.4-10.8)
[2017-12-18 07:07] LABS: Albumin 2.4 g/dL (3.4-5.0); BUN/Creatinine Ratio 24.6; Calcium 7.8 mg/dL (8.5-10.1); Potassium 3.7 mmol/L (3.5-5.1)
[2017-12-18 07:10] LABS: Bilirubin, Total 0.8 mg/dL (0.2-1.0); Total Protein 5.7 g/dL (6.4-8.2)
[2017-12-18] MEDS: cefTRIAXone 1GM/10ml IVPUSH 10 ML IV SCH (08:48)
[2017-12-18] MEDS: ASPirin 81 mg TAB PO SCH (09:44)
[2017-12-18] MEDS: AZITHROMYCIN 500MG/ 250ML 250 ML IV SCH (09:44)
[2017-12-18] MEDS: VANCOMYCIN 1GM/250ML 250 ML IV SCH (09:44)
[2017-12-18] MEDS: AMIODARONE HCL 200 MG TAB PO SCH (09:45)
[2017-12-18] MEDS: SODIUM CHLOR 0.9% PF (SALINE LOCK) 10ML VIAL/SYR IV SCH ×2 (09:45→22:10)
[2017-12-18] MEDS ORDERED: ENOXAPARIN SOD 100 MG/1 ML SYRINGE SC SCH (10:00)
[2017-12-18] MEDS ORDERED: PANTOPRAZOLE 40 MG/10 ML VIAL IV ONE (12:45)
[2017-12-18] MEDS ORDERED: Glucerna 1.2 Cal 1Liter BOTTLE GT SCH (13:30)
[2017-12-18] MEDS ORDERED: PIPERACILLIN-TAZOB 3.375GM 100 ML IV ONE (13:30)
[2017-12-18] MEDS: Glucerna 1.2 Cal 1Liter BOTTLE GT SCH (15:05)
[2017-12-18] MEDS: ACETAMINOPHEN 650 mg PER 20 mL UD GT PRN (17:21)
[2017-12-18] MEDS: PIPERACILLIN-TAZOB 3.375GM 100 ML IV SCH (18:06)
[2017-12-18] MEDS: ATORVASTATIN 20 MG TAB PO SCH (22:10)
[2017-12-18] MEDS: fentaNYL Drip 2500mCg/250mlNS 250 ML IV SCH (23:30)
[2017-12-19] VITALS (88 sets, daily range): BP systolic 58–217; BP diastolic 32–131
[2017-12-19] MEDS: IPRATROPIUM BROM 0.5 MG/2.5ML INH SOL NEB SCH ×4 (00:20→18:32)
[2017-12-19] MEDS: ALBUTEROL SULF 2.5 MG/0.5ML(0.5%) NEB SOLN NEB SCH ×4 (00:21→18:32)
[2017-12-19] MEDS: ACETYLCYSTEINE 10 %(100MG/ML) SOL 4ML NEB SCH ×4 (00:21→18:33)
[2017-12-19] MEDS: PIPERACILLIN-TAZOB 3.375GM 100 ML IV SCH ×4 (00:28→19:38)
[2017-12-19] MEDS: ACCU-CHEK COMFORT CURVE STRIP VI SCH ×4 (00:28→18:24)
[2017-12-19] MEDS: SODIUM CHLORIDE 0.9% 1,000 ML IV SCH ×3 (02:00→18:24)
[2017-12-19 03:46] LABS: Basophils # (auto) 0 uL; Basophils % (auto) 0.6 % (0.0-2.0); Eosinophils # (auto) 0.4 uL; Eosinophils % (auto) 5.3 % (0.0-7.0); Hematocrit 25.8 % (36.0-46.0); Hemoglobin 8.6 g/dL (12.2-16.2); Mean Corpuscular Hemoglobin 29.1 pg (28.0-32.0); Mean Corpuscular Hgb Conc. 33.4 g/dL (32.0-36.0); Mean Corpuscular Volume 87.2 fL (80.0-100.0); Monocytes # (auto) 0.5 uL; Monocytes % (auto) 6.6 % (0.0-12.0); Neutrophils # (auto) 5.3 uL; Neutrophils % (auto) 73.5 % (37.0-80.0); Platelet Count (auto) 103 10^3/uL (140-450); Red Blood Cells 2.96 10^6/uL (4.0-5.20); Red Cell Distribution Width 17.8 % (11.8-14.3); White Blood Cell 7.1 10^3/uL (4.4-10.8)
[2017-12-19 04:11] LABS: Albumin 2.2 g/dL (3.4-5.0); BUN/Creatinine Ratio 20.7; Potassium 3.2 mmol/L (3.5-5.1)
[2017-12-19 04:16] LABS: Bilirubin, Total 0.8 mg/dL (0.2-1.0); Total Protein 5.6 g/dL (6.4-8.2)
[2017-12-19] MEDS ORDERED: POTASSIUM EFFERVESENT TAB 25 MEQ GT ONE (05:00)
[2017-12-19] MEDS: InsuLIN REG 1unit/0.01ml Soln (100units/ml) SC SCH ×4 (05:24→18:00)
[2017-12-19] MEDS ORDERED: AMIODARONE HCL 200 MG TAB PO SCH (10:00)
[2017-12-19] MEDS: SODIUM CHLOR 0.9% PF (SALINE LOCK) 10ML VIAL/SYR IV SCH ×2 (10:30→22:21)
[2017-12-19] MEDS: ENOXAPARIN SOD 100 MG/1 ML SYRINGE SC SCH ×2 (10:30→22:00)
[2017-12-19] MEDS: ASPirin-EC 81 mg tab PO SCH (10:30)
[2017-12-19] MEDS: VANCOMYCIN 1GM/250ML 250 ML IV SCH (10:35)
[2017-12-19] MEDS: PANTOPRAZOLE 40 MG/10 ML VIAL IV SCH (10:35)
[2017-12-19 17:17] LABS: % Iron Saturation 13.8 % (15-50)
[2017-12-19] MEDS ORDERED: NIFEdipine ER 30 MG TAB PO SCH (22:00)
[2017-12-19] MEDS ORDERED: NIFEdipine 10 MG CAP PO SCH (22:00)
[2017-12-19] MEDS: ATORVASTATIN 20 MG TAB PO SCH (22:21)
[2017-12-19] MEDS: NIFEdipine 10 MG CAP PO SCH (22:22)
[2017-12-19] MEDS: ACETAMINOPHEN 650 mg PER 20 mL UD GT PRN (22:23)
[2017-12-19] MEDS: fentaNYL Drip 2500mCg/250mlNS 250 ML IV SCH (23:30)
[2017-12-20] VITALS (82 sets, daily range): BP systolic 102–175; BP diastolic 46–109
[2017-12-20] MEDS: ALBUTEROL SULF 2.5 MG/0.5ML(0.5%) NEB SOLN NEB SCH ×4 (00:42→18:27)
[2017-12-20] MEDS: IPRATROPIUM BROM 0.5 MG/2.5ML INH SOL NEB SCH ×4 (00:42→18:27)
[2017-12-20] MEDS: ACETYLCYSTEINE 10 %(100MG/ML) SOL 4ML NEB SCH ×4 (00:43→18:27)
[2017-12-20] MEDS: ACCU-CHEK COMFORT CURVE STRIP VI SCH ×4 (00:50→18:23)
[2017-12-20] MEDS: InsuLIN REG 1unit/0.01ml Soln (100units/ml) SC SCH ×4 (00:50→18:00)
[2017-12-20] MEDS: PIPERACILLIN-TAZOB 3.375GM 100 ML IV SCH ×4 (00:54→18:07)
[2017-12-20 04:23] LABS: Basophils # (auto) 0.1 uL; Basophils % (auto) 0.8 % (0.0-2.0); Eosinophils # (auto) 0.3 uL; Eosinophils % (auto) 4.9 % (0.0-7.0); Hematocrit 25.8 % (36.0-46.0); Hemoglobin 8.5 g/dL (12.2-16.2); Lymphocytes # (auto) 0.9 uL; Lymphocytes % (auto) 13.4 % (10.0-50.0); Mean Corpuscular Hemoglobin 28.9 pg (28.0-32.0); Mean Corpuscular Volume 87.4 fL (80.0-100.0); Monocytes # (auto) 0.5 uL; Monocytes % (auto) 6.8 % (0.0-12.0); Neutrophils # (auto) 5.1 uL; Neutrophils % (auto) 74.1 % (37.0-80.0); Platelet Count (auto) 117 10^3/uL (140-450); Red Blood Cells 2.95 10^6/uL (4.0-5.20); Red Cell Distribution Width 18.1 % (11.8-14.3); White Blood Cell 6.9 10^3/uL (4.4-10.8)
[2017-12-20] MEDS: SODIUM CHLORIDE 0.9% 1,000 ML IV SCH (04:32)
[2017-12-20 04:38] LABS: Albumin 2.2 g/dL (3.4-5.0); BUN/Creatinine Ratio 18.6; Calcium 8.1 mg/dL (8.5-10.1); Potassium 3.2 mmol/L (3.5-5.1)
[2017-12-20 04:43] LABS: Bilirubin, Total 0.8 mg/dL (0.2-1.0); Total Protein 5.5 g/dL (6.4-8.2)
[2017-12-20] MEDS: NIFEdipine 10 MG CAP PO SCH ×3 (06:00→22:00)
[2017-12-20] MEDS: POTASSIUM CHL 20MEQ/100ML 100 ML IV SCH ×2 (06:38→09:56)
[2017-12-20] MEDS ORDERED: FUROSEMIDE 20 MG/2 ML VIAL IV ONE (09:15)
[2017-12-20] MEDS ORDERED: FUROSEMIDE 100 MG/10ML VIAL IV ONE (09:30)
[2017-12-20] MEDS: PANTOPRAZOLE 40 MG/10 ML VIAL IV SCH (09:56)
[2017-12-20] MEDS: VANCOMYCIN 1GM/250ML 250 ML IV SCH (09:56)
[2017-12-20] MEDS: SODIUM CHLOR 0.9% PF (SALINE LOCK) 10ML VIAL/SYR IV SCH ×2 (09:57→22:29)
[2017-12-20] MEDS: ASPirin-EC 81 mg tab PO SCH (09:57)
[2017-12-20] MEDS: ENOXAPARIN SOD 100 MG/1 ML SYRINGE SC SCH ×2 (10:00→22:28)
[2017-12-20] MEDS ORDERED: POTASSIUM CHL 20MEQ/100ML 100 ML IV SCH (11:00)
[2017-12-20] MEDS ORDERED: POTASSIUM CHL 20MEQ/100ML 100 ML IV ONE (17:45)
[2017-12-20] MEDS: FUROSEMIDE 40 MG/4 ML VIAL IV SCH (18:10)
[2017-12-20] MEDS: HYDROcodone-ACET 5/325MG TAB PO PRN (19:57)
[2017-12-20] MEDS: POTASSIUM CHL 20 Meq TABLET PO SCH (22:28)
[2017-12-20] MEDS: ATORVASTATIN 20 MG TAB PO SCH (22:29)
[2017-12-20] MEDS: CARVEDILOL 3.125 MG TAB PO SCH (22:29)
[2017-12-20] MEDS: fentaNYL Drip 2500mCg/250mlNS 250 ML IV SCH (23:30)
[2017-12-21] VITALS (70 sets, daily range): BP systolic 98–157; BP diastolic 38–119
[2017-12-21] MEDS: PIPERACILLIN-TAZOB 3.375GM 100 ML IV SCH ×5 (00:10→23:39)
[2017-12-21] MEDS: ALBUTEROL SULF 2.5 MG/0.5ML(0.5%) NEB SOLN NEB SCH ×4 (00:25→19:22)
[2017-12-21] MEDS: IPRATROPIUM BROM 0.5 MG/2.5ML INH SOL NEB SCH ×4 (00:25→19:22)
[2017-12-21] MEDS: ACETYLCYSTEINE 10 %(100MG/ML) SOL 4ML NEB SCH ×4 (00:26→19:22)
[2017-12-21 04:21] LABS: Basophils # (auto) 0 uL; Basophils % (auto) 0.5 % (0.0-2.0); Eosinophils # (auto) 0.2 uL; Hematocrit 26.7 % (36.0-46.0); Hemoglobin 9.2 g/dL (12.2-16.2); Mean Corpuscular Hemoglobin 29.9 pg (28.0-32.0); Mean Corpuscular Hgb Conc. 34.4 g/dL (32.0-36.0); Mean Corpuscular Volume 86.9 fL (80.0-100.0); Monocytes # (auto) 0.6 uL; Monocytes % (auto) 7.6 % (0.0-12.0); Neutrophils # (auto) 5.5 uL; Neutrophils % (auto) 74.9 % (37.0-80.0); Nucleated Red Blood Cells % 0.2 %; Platelet Count (auto) 158 10^3/uL (140-450); Red Blood Cells 3.08 10^6/uL (4.0-5.20); Red Cell Distribution Width 17.6 % (11.8-14.3); White Blood Cell 7.4 10^3/uL (4.4-10.8)
[2017-12-21 04:43] LABS: BUN/Creatinine Ratio 13.7; Calcium 8.9 mg/dL (8.5-10.1); Potassium 3.3 mmol/L (3.5-5.1)
[2017-12-21] MEDS: FUROSEMIDE 40 MG/4 ML VIAL IV SCH ×2 (05:55→18:01)
[2017-12-21] MEDS: NIFEdipine 10 MG CAP PO SCH ×3 (05:55→21:44)
[2017-12-21] MEDS: ACCU-CHEK COMFORT CURVE STRIP VI SCH ×5 (05:55→23:40)
[2017-12-21] MEDS: InsuLIN REG 1unit/0.01ml Soln (100units/ml) SC SCH ×5 (05:56→23:40)
[2017-12-21] MEDS: HYDROcodone-ACET 5/325MG TAB PO PRN (06:15)
[2017-12-21] MEDS: ENOXAPARIN SOD 100 MG/1 ML SYRINGE SC SCH ×2 (08:42→21:43)
[2017-12-21] MEDS: ASPirin-EC 81 mg tab PO SCH (08:42)
[2017-12-21] MEDS: CARVEDILOL 3.125 MG TAB PO SCH ×2 (08:42→21:43)
[2017-12-21] MEDS: PANTOPRAZOLE 40 MG/10 ML VIAL IV SCH (08:42)
[2017-12-21] MEDS: AMIODARONE HCL 200 MG TAB PO SCH (08:43)
[2017-12-21] MEDS: SODIUM CHLOR 0.9% PF (SALINE LOCK) 10ML VIAL/SYR IV SCH ×2 (08:43→21:43)
[2017-12-21] MEDS: LISINOPRIL 10 MG TAB PO SCH (10:00)
[2017-12-21] MEDS: POTASSIUM CHL 20 Meq TABLET PO SCH ×2 (10:00→21:43)
[2017-12-21] MEDS ORDERED: AMIODARONE HCL 200 MG TAB PO SCH (10:00)
[2017-12-21] MEDS ORDERED: POTASSIUM CHL 20MEQ/100ML 100 ML IV ONE (12:30)
[2017-12-21] MEDS: ATORVASTATIN 20 MG TAB PO SCH (21:43)
[2017-12-22] MEDS: ALBUTEROL SULF 2.5 MG/0.5ML(0.5%) NEB SOLN NEB SCH ×4 (01:15→19:52)
[2017-12-22] MEDS: IPRATROPIUM BROM 0.5 MG/2.5ML INH SOL NEB SCH ×4 (01:15→19:52)
[2017-12-22] MEDS: ACETYLCYSTEINE 10 %(100MG/ML) SOL 4ML NEB SCH ×4 (01:16→19:52)
[2017-12-22 04:14] VITALS: BP 129/58
[2017-12-22] MEDS: PIPERACILLIN-TAZOB 3.375GM 100 ML IV SCH ×3 (05:29→18:09)
[2017-12-22] MEDS: ACCU-CHEK COMFORT CURVE STRIP VI SCH ×3 (05:30→18:10)
[2017-12-22] MEDS: FUROSEMIDE 40 MG/4 ML VIAL IV SCH ×2 (05:30→18:23)
[2017-12-22] MEDS: NIFEdipine 10 MG CAP PO SCH ×3 (05:30→21:47)
[2017-12-22 05:32] LABS: Hematocrit 27.1 % (36.0-46.0); Hemoglobin 9.1 g/dL (12.2-16.2)
[2017-12-22 05:52] LABS: BUN/Creatinine Ratio 15.9; Calcium 8.5 mg/dL (8.5-10.1); Potassium 3.7 mmol/L (3.5-5.1)
[2017-12-22] MEDS: InsuLIN REG 1unit/0.01ml Soln (100units/ml) SC SCH ×3 (06:00→18:00)
[2017-12-22] MEDS: ENOXAPARIN SOD 100 MG/1 ML SYRINGE SC SCH ×2 (10:22→22:05)
[2017-12-22] MEDS: PANTOPRAZOLE 40 MG/10 ML VIAL IV SCH (10:22)
[2017-12-22] MEDS: CARVEDILOL 3.125 MG TAB PO SCH ×2 (10:24→22:05)
[2017-12-22] MEDS: POTASSIUM CHL 20 Meq TABLET PO SCH ×2 (10:24→22:05)
[2017-12-22] MEDS: LISINOPRIL 10 MG TAB PO SCH (10:25)
[2017-12-22] MEDS: ASPirin-EC 81 mg tab PO SCH (10:26)
[2017-12-22] MEDS: SODIUM CHLOR 0.9% PF (SALINE LOCK) 10ML VIAL/SYR IV SCH ×2 (10:27→22:04)
[2017-12-22] MEDS: AMIODARONE HCL 200 MG TAB PO SCH (10:27)
[2017-12-22 11:51] VITALS: BP 143/84
[2017-12-22 15:50] VITALS: BP 117/73
[2017-12-22 21:03] VITALS: BP 133/87
[2017-12-22 21:47] VITALS: BP 121/74
[2017-12-22] MEDS: ATORVASTATIN 20 MG TAB PO SCH (22:05)
[2017-12-23] MEDS: PIPERACILLIN-TAZOB 3.375GM 100 ML IV SCH ×5 (00:17→23:56)
[2017-12-23] MEDS: ACCU-CHEK COMFORT CURVE STRIP VI SCH ×5 (00:17→23:55)
[2017-12-23] MEDS: ACETYLCYSTEINE 10 %(100MG/ML) SOL 4ML NEB SCH ×4 (00:59→18:20)
[2017-12-23] MEDS: ALBUTEROL SULF 2.5 MG/0.5ML(0.5%) NEB SOLN NEB SCH ×4 (00:59→18:19)
[2017-12-23] MEDS: IPRATROPIUM BROM 0.5 MG/2.5ML INH SOL NEB SCH ×4 (00:59→18:19)
[2017-12-23 05:00] VITALS: BP 118/62
[2017-12-23] MEDS: NIFEdipine 10 MG CAP PO SCH ×3 (05:23→21:49)
[2017-12-23] MEDS: FUROSEMIDE 40 MG/4 ML VIAL IV SCH (05:50)
[2017-12-23] MEDS: InsuLIN REG 1unit/0.01ml Soln (100units/ml) SC SCH ×5 (05:51→23:55)
[2017-12-23 06:36] LABS: Hematocrit 27.8 % (36.0-46.0); Hemoglobin 9.3 g/dL (12.2-16.2)
[2017-12-23 06:46] LABS: BUN/Creatinine Ratio 15.8; Calcium 9.2 mg/dL (8.5-10.1); Potassium 3.7 mmol/L (3.5-5.1)
[2017-12-23 09:00] VITALS: BP 115/66
[2017-12-23] MEDS ORDERED: ENOXAPARIN SOD 100 MG/1 ML SYRINGE SC SCH (10:00)
[2017-12-23] MEDS ORDERED: FLORASTOR (S. BOULARDII) 250 MG CAP PO ONE (10:10)
[2017-12-23] MEDS ORDERED: APIXABAN 5 MG TAB PO ONE (10:45)
[2017-12-23] MEDS: PANTOPRAZOLE 40 MG/10 ML VIAL IV SCH (10:56)
[2017-12-23] MEDS: ASPirin-EC 81 mg tab PO SCH (10:57)
[2017-12-23] MEDS: AMIODARONE HCL 200 MG TAB PO SCH (10:57)
[2017-12-23] MEDS: LISINOPRIL 10 MG TAB PO SCH (10:58)
[2017-12-23] MEDS: CARVEDILOL 3.125 MG TAB PO SCH ×2 (11:00→21:51)
[2017-12-23] MEDS: SODIUM CHLOR 0.9% PF (SALINE LOCK) 10ML VIAL/SYR IV SCH ×2 (11:01→21:50)
[2017-12-23 13:00] VITALS: BP 127/84
[2017-12-23 17:00] VITALS: BP 106/72
[2017-12-23] MEDS: LACTULOSE 20Gm/30ML SOLN PO PRN (17:45)
[2017-12-23 21:32] VITALS: BP 117/60
[2017-12-23] MEDS: DOCUSATE SOD 100 MG CAP PO SCH (21:50)
[2017-12-23] MEDS: APIXABAN 5 MG TAB PO SCH (21:51)
[2017-12-23] MEDS: ATORVASTATIN 20 MG TAB PO SCH (21:52)
[2017-12-24] VITALS (21 sets, daily range): BP systolic 73–155; BP diastolic 32–112
[2017-12-24] MEDS: ALBUTEROL SULF 2.5 MG/0.5ML(0.5%) NEB SOLN NEB SCH ×4 (00:30→18:45)
[2017-12-24] MEDS: IPRATROPIUM BROM 0.5 MG/2.5ML INH SOL NEB SCH ×4 (00:30→18:45)
[2017-12-24] MEDS: ACETYLCYSTEINE 10 %(100MG/ML) SOL 4ML NEB SCH ×4 (00:31→18:46)
[2017-12-24] MEDS: PIPERACILLIN-TAZOB 3.375GM 100 ML IV SCH ×3 (05:56→18:26)
[2017-12-24] MEDS: NIFEdipine 10 MG CAP PO SCH ×3 (05:56→23:40)
[2017-12-24] MEDS: ACCU-CHEK COMFORT CURVE STRIP VI SCH ×3 (05:57→18:28)
[2017-12-24] MEDS: InsuLIN REG 1unit/0.01ml Soln (100units/ml) SC SCH ×2 (05:57→11:47)
[2017-12-24 06:27] LABS: Hematocrit 26.2 % (36.0-46.0); Hemoglobin 8.9 g/dL (12.2-16.2)
[2017-12-24 06:49] LABS: BUN/Creatinine Ratio 16.5; Calcium 8.8 mg/dL (8.5-10.1); Magnesium 2.1 mg/dL (1.6-2.6); Potassium 3.5 mmol/L (3.5-5.1)
[2017-12-24] MEDS: HYDROcodone-ACET 5/325MG TAB PO PRN (08:33)
[2017-12-24] MEDS ORDERED: POTASSIUM CHL 20 Meq TABLET PO SCH (10:00)
[2017-12-24] MEDS ORDERED: APIX2.5T PO (10:18)
[2017-12-24] MEDS ORDERED: AMI200T PO (10:18)
[2017-12-24] MEDS ORDERED: NIF10C PO (10:35)
[2017-12-24] MEDS ORDERED: ATOR20TA50 PO (10:35)
[2017-12-24] MEDS ORDERED: LISI10TA6 PO (10:35)
[2017-12-24] MEDS ORDERED: PANT40TA2 PO ×2 (10:35→15:31)
[2017-12-24] MEDS ORDERED: CAR3125T PO (10:35)
[2017-12-24] MEDS ORDERED: POTA20TA53 PO (10:35)
[2017-12-24] MEDS ORDERED: FURO40TA4 PO (10:35)
[2017-12-24] MEDS: PANTOPRAZOLE 40 MG/10 ML VIAL IV SCH (10:55)
[2017-12-24] MEDS: APIXABAN 5 MG TAB PO SCH ×2 (11:01→22:00)
[2017-12-24] MEDS: ASPirin-EC 81 mg tab PO SCH (11:02)
[2017-12-24] MEDS: LISINOPRIL 10 MG TAB PO SCH (11:02)
[2017-12-24] MEDS: AMIODARONE HCL 200 MG TAB PO SCH (11:03)
[2017-12-24] MEDS: DOCUSATE SOD 100 MG CAP PO SCH ×2 (11:03→22:00)
[2017-12-24] MEDS: FUROSEMIDE 40 MG TAB PO SCH (11:04)
[2017-12-24] MEDS: CARVEDILOL 3.125 MG TAB PO SCH ×2 (11:04→23:40)
[2017-12-24] MEDS: FLORASTOR (S. BOULARDII) 250 MG CAP PO SCH (11:05)
[2017-12-24] MEDS ORDERED: HYDROcodone-ACET 10/325MG TAB PO ONE (11:15)
[2017-12-24] MEDS: HYDROcodone-ACET 10/325MG TAB PO PRN ×3 (11:40→18:57)
[2017-12-24] MEDS: SODIUM CHLOR 0.9% PF (SALINE LOCK) 10ML VIAL/SYR IV SCH ×2 (11:45→22:00)
[2017-12-24] MEDS ORDERED: SACC250C PO (11:53)
[2017-12-24] MEDS ORDERED: LEVO250T45 PO (11:53)
[2017-12-24] MEDS ORDERED: SPIR25TA88 PO (15:15)
[2017-12-24] MEDS ORDERED: METF-370 PO (15:31)
[2017-12-24] MEDS ORDERED: DIGO0.1262 PO (15:31)
[2017-12-24] MEDS ORDERED: CARV6.2551 PO (15:31)
[2017-12-24] MEDS ORDERED: SIMV-8 PO (15:31)
[2017-12-24] MEDS ORDERED: FLUT110A INH (15:31)
[2017-12-24] MEDS ORDERED: SUCCINYLCHOLINE CHLORIDE 20 MG/ML 10ML VIAL IV ONE (19:47)
[2017-12-24] MEDS ORDERED: ETOMIDATE (2MG/ML) 20ML VIAL IV ONE (19:47)
[2017-12-24] MEDS ORDERED: ALBUTEROL SULF 2.5 MG/0.5ML(0.5%) NEB SOLN ONE (19:53)
[2017-12-24] MEDS ORDERED: FUROSEMIDE 20 MG/2 ML VIAL ONE (19:53)
[2017-12-24] MEDS ORDERED: FUROSEMIDE 20 MG/2 ML VIAL IV ONE (20:00)
[2017-12-24] MEDS ORDERED: MIDAZOLAM DRIP 50 mg/50mL 50 ML IV ONE (21:45)
[2017-12-24] MEDS: ATORVASTATIN 20 MG TAB PO SCH (22:00)
[2017-12-24] MEDS ORDERED: LEVOFLOXACIN 750MG 150 ML IV SCH (23:00)
[2017-12-25] VITALS (97 sets, daily range): BP systolic 73–176; BP diastolic 33–107
[2017-12-25] MEDS: ACETYLCYSTEINE 10 %(100MG/ML) SOL 4ML NEB SCH ×4 (00:35→18:16)
[2017-12-25] MEDS: ALBUTEROL SULF 2.5 MG/0.5ML(0.5%) NEB SOLN NEB SCH ×4 (00:36→18:16)
[2017-12-25] MEDS: IPRATROPIUM BROM 0.5 MG/2.5ML INH SOL NEB SCH ×4 (00:36→18:16)
[2017-12-25] MEDS: NIFEdipine 10 MG CAP PO SCH ×3 (05:28→22:00)
[2017-12-25] MEDS: MIDAZOLAM DRIP 50 mg/50mL 50 ML IV SCH ×2 (06:00→23:00)
[2017-12-25] MEDS: InsuLIN REG 1unit/0.01ml Soln (100units/ml) SC SCH ×4 (06:00→18:37)
[2017-12-25] MEDS: ACCU-CHEK COMFORT CURVE STRIP VI SCH ×4 (06:25→18:37)
[2017-12-25] MEDS: PIPERACILLIN-TAZOB 3.375GM 100 ML IV SCH ×2 (06:25)
[2017-12-25] MEDS ORDERED: APIXABAN 2.5 MG TAB PO SCH (10:00)
[2017-12-25] MEDS: DOCUSATE SOD 100 MG CAP PO SCH (10:00)
[2017-12-25 10:53] LABS: Basophils # (auto) 0.1 uL; Eosinophils # (auto) 0.1 uL; Eosinophils % (auto) 0.8 % (0.0-7.0)
[2017-12-25 10:55] LABS: Basophils % (auto) 0.6 % (0.0-2.0); Hematocrit 22.6 % (36.0-46.0); Hemoglobin 7.4 g/dL (12.2-16.2); Lymphocytes # (auto) 2.9 uL; Lymphocytes % (auto) 20.6 % (10.0-50.0); Mean Corpuscular Hemoglobin 28.7 pg (28.0-32.0); Mean Corpuscular Hgb Conc. 32.6 g/dL (32.0-36.0); Mean Corpuscular Volume 87.8 fL (80.0-100.0); Monocytes % (auto) 6.8 % (0.0-12.0); Neutrophils % (auto) 71.2 % (37.0-80.0); Platelet Count (auto) 210 10^3/uL (140-450); Red Blood Cells 2.57 10^6/uL (4.0-5.20); Red Cell Distribution Width 18.5 % (11.8-14.3)
[2017-12-25] MEDS: PANTOPRAZOLE 40 MG/10 ML VIAL IV SCH (11:11)
[2017-12-25 11:12] LABS: Albumin 2.7 g/dL (3.4-5.0); BUN/Creatinine Ratio 17.1; Bilirubin, Total 0.9 mg/dL (0.2-1.0); Calcium 8.7 mg/dL (8.5-10.1); Magnesium 2.1 mg/dL (1.6-2.6); Potassium 3.9 mmol/L (3.5-5.1); Total Protein 6.3 g/dL (6.4-8.2)
[2017-12-25] MEDS: SODIUM CHLOR 0.9% PF (SALINE LOCK) 10ML VIAL/SYR IV SCH ×2 (11:12→22:29)
[2017-12-25] MEDS: AMIODARONE HCL 200 MG TAB PO SCH (11:20)
[2017-12-25] MEDS: FLORASTOR (S. BOULARDII) 250 MG CAP PO SCH (11:25)
[2017-12-25] MEDS ORDERED: LORazepam 2MG/ML-1ML VIAL IM ONE (12:15)
[2017-12-25] MEDS ORDERED: MIDAZOLAM HCL 1MG/1ML-2 ML VIAL ONE (12:17)
[2017-12-25] MEDS: FUROSEMIDE 40 MG TAB PO SCH (13:23)
[2017-12-25] MEDS: LISINOPRIL 10 MG TAB PO SCH (13:23)
[2017-12-25] MEDS: CARVEDILOL 3.125 MG TAB PO SCH ×2 (13:32→22:00)
[2017-12-25] MEDS: METOPROLOL TARTRATE 1MG/1ML-5ML VIAL IV PRN (16:03)
[2017-12-25] MEDS ORDERED: NOREPINEPHRINE 8 MG/250ML KIT 250 ML IV ONE (16:16)
[2017-12-25] MEDS ORDERED: MAGNESIUM SULFATE 1GM/100ML 100 ML IV ONE ×2 (16:19→16:30)
[2017-12-25] MEDS: NOREPINEPHRINE 8 MG/250ML KIT 250 ML IV SCH ×2 (16:30→22:24)
[2017-12-25] MEDS ORDERED: AMIODARONE HCL 900 MG in DEXTROSE 500 ML IV SCH (16:33)
[2017-12-25] MEDS: PHENYLEPHRINE INJ 20 MG in SODIUM CHL 0.9% 250 ML IV SCH (19:07)
[2017-12-25] MEDS ORDERED: ATROPINE SULF 1 MG/10ml SYR IV ONE (19:37)
[2017-12-25] MEDS ORDERED: SODIUM BICARBONATE 8.4% INJ 50ML SYRINGE IV ONE (19:37)
[2017-12-25] MEDS ORDERED: CALCIUM CHLOR(10%) 100MG/ML 10ML SYRINGE IV ONE (19:37)
[2017-12-25] MEDS ORDERED: AMIODARONE HCL (50 MG/ ML) 3 ML VIAL IV ONE (19:37)
[2017-12-25] MEDS ORDERED: EPINEPHrine HCL 1 MG/10 ML SYRG IV ONE (19:37)
[2017-12-25] MEDS: ATORVASTATIN 20 MG TAB PO SCH (22:30)
[2017-12-26] VITALS (97 sets, daily range): BP systolic 87–140; BP diastolic 39–98
[2017-12-26] MEDS: ACETYLCYSTEINE 10 %(100MG/ML) SOL 4ML NEB SCH ×4 (00:09→18:36)
[2017-12-26] MEDS: ALBUTEROL SULF 2.5 MG/0.5ML(0.5%) NEB SOLN NEB SCH ×4 (00:09→18:34)
[2017-12-26] MEDS: IPRATROPIUM BROM 0.5 MG/2.5ML INH SOL NEB SCH ×4 (00:09→18:34)
[2017-12-26] MEDS: ACCU-CHEK COMFORT CURVE STRIP VI SCH ×4 (00:27→18:00)
[2017-12-26] MEDS: PHENYLEPHRINE INJ 20 MG in SODIUM CHL 0.9% 250 ML IV SCH ×3 (03:27→20:07)
[2017-12-26 03:53] LABS: Basophils # (auto) 0.1 uL; Eosinophils # (auto) 0.1 uL; Hemoglobin 7.7 g/dL (12.2-16.2); Lymphocytes # (auto) 2.1 uL; Mean Corpuscular Volume 87.6 fL (80.0-100.0); Monocytes # (auto) 1.1 uL; Neutrophils # (auto) 11.8 uL; Neutrophils % (auto) 77.7 % (37.0-80.0); White Blood Cell 15.2 10^3/uL (4.4-10.8)
[2017-12-26 03:56] LABS: Basophils % (auto) 0.8 % (0.0-2.0); Eosinophils % (auto) 0.5 % (0.0-7.0); Hematocrit 23.3 % (36.0-46.0); Lymphocytes % (auto) 13.5 % (10.0-50.0); Mean Corpuscular Hgb Conc. 33.1 g/dL (32.0-36.0); Monocytes % (auto) 7.5 % (0.0-12.0); Nucleated Red Blood Cells % 0.1 %; Platelet Count (auto) 204 10^3/uL (140-450); Red Blood Cells 2.65 10^6/uL (4.0-5.20); Red Cell Distribution Width 17.9 % (11.8-14.3)
[2017-12-26 04:12] LABS: INR 1.07 (0.9-1.15); Partial Thromboplastin Time 27.3 sec (23.78-33.04); Prothrombin Time 11.4 sec (9.27-12.13)
[2017-12-26 04:18] LABS: Albumin 2.5 g/dL (3.4-5.0); BUN/Creatinine Ratio 19.2; Calcium 8.6 mg/dL (8.5-10.1); Magnesium 2.2 mg/dL (1.6-2.6)
[2017-12-26 04:22] LABS: Bilirubin, Total 0.8 mg/dL (0.2-1.0); Total Protein 5.8 g/dL (6.4-8.2)
[2017-12-26 05:05] LABS: Urine Bacteria FEW /hpf (None Seen); Urine Blood Negative /uL (Negative); Urine Mucus FEW (None Seen); Urine Specific Gravity 1.014 (1.001-1.035); Urine WBC 3 /hpf (0 - 5)
[2017-12-26] MEDS: NIFEdipine 10 MG CAP PO SCH ×3 (06:00→22:00)
[2017-12-26] MEDS: InsuLIN REG 1unit/0.01ml Soln (100units/ml) SC SCH ×4 (06:00→18:00)
[2017-12-26] MEDS: NOREPINEPHRINE 8 MG/250ML KIT 250 ML IV SCH (08:00)
[2017-12-26] MEDS: AMIODARONE HCL 200 MG TAB PO SCH (10:00)
[2017-12-26] MEDS: PANTOPRAZOLE 40 MG/10 ML VIAL IV SCH (10:00)
[2017-12-26] MEDS: FUROSEMIDE 40 MG TAB PO SCH (10:00)
[2017-12-26] MEDS: SODIUM CHLOR 0.9% PF (SALINE LOCK) 10ML VIAL/SYR IV SCH ×2 (10:00→22:00)
[2017-12-26] MEDS: CARVEDILOL 3.125 MG TAB PO SCH ×2 (10:00→22:00)
[2017-12-26] MEDS: DOCUSATE ORAL LIQUID 100 MG/10 ML UD GT SCH ×2 (10:00→22:37)
[2017-12-26] MEDS: FLORASTOR (S. BOULARDII) 250 MG CAP PO SCH (10:00)
[2017-12-26] MEDS: LISINOPRIL 10 MG TAB PO SCH (10:00)
[2017-12-26 11:19] LABS: BUN/Creatinine Ratio 18.9; Calcium 8.7 mg/dL (8.5-10.1); Potassium 3.8 mmol/L (3.5-5.1)
[2017-12-26] MEDS: MIDAZOLAM DRIP 50 mg/50mL 50 ML IV SCH ×2 (12:00→20:25)
[2017-12-26] MEDS: PIPERACILLIN-TAZOB 2.25GM 50 ML IV SCH ×2 (12:12→20:25)
[2017-12-26] MEDS ORDERED: ceFAZolin 1GM/50ML 50 ML IV ONE (14:30)
[2017-12-26] MEDS ORDERED: LIDOCAINE 2%HCL (LOCAL ANESTH.) INJ 10ml MDV ONE (14:53)
[2017-12-26] MEDS ORDERED: VANCOMYCIN HCL 1000 MG VL ONE (15:02)
[2017-12-26] MEDS ORDERED: fentaNYL CITRATE 100 MCG/2 ML VL ONE (15:02)
[2017-12-26] MEDS ORDERED: VANCOMYCIN 1GM/250ML 250 ML IV ONE (15:02)
[2017-12-26] MEDS ORDERED: IOHEXOL 350 MG/ML 100ML IJ ONE (15:14)
[2017-12-26 15:19] LABS: Hematocrit 22.3 % (36.0-46.0); Hemoglobin 7.4 g/dL (12.2-16.2)
[2017-12-26] MEDS ORDERED: DEXTROSE (50%) 50ML SYRG IV PRN (16:15)
[2017-12-26] MEDS ORDERED: ALBUTEROL SULF 2.5 MG/0.5ML(0.5%) NEB SOLN NEB PRN (16:15)
[2017-12-26] MEDS ORDERED: IPRATROPIUM BROM 0.5 MG/2.5ML INH SOL NEB PRN (16:15)
[2017-12-26] MEDS ORDERED: ONDANSETRON HCL 4 MG/2 ML VIAL IV PRN (16:15)
[2017-12-26] MEDS ORDERED: FUROSEMIDE 20 MG/2 ML VIAL ONE (16:30)
[2017-12-26] MEDS: ATORVASTATIN 20 MG TAB PO SCH (22:37)
[2017-12-27] VITALS (108 sets, daily range): BP systolic 73–134; BP diastolic 35–98
[2017-12-27] MEDS: ALBUTEROL SULF 2.5 MG/0.5ML(0.5%) NEB SOLN NEB SCH ×5 (00:29→23:43)
[2017-12-27] MEDS: IPRATROPIUM BROM 0.5 MG/2.5ML INH SOL NEB SCH ×5 (00:29→23:43)
[2017-12-27] MEDS: ACETYLCYSTEINE 10 %(100MG/ML) SOL 4ML NEB SCH ×4 (00:30→18:14)
[2017-12-27] MEDS: MIDAZOLAM DRIP 50 mg/50mL 50 ML IV SCH ×5 (01:13→20:27)
[2017-12-27] MEDS: PIPERACILLIN-TAZOB 2.25GM 50 ML IV SCH ×3 (03:38→19:52)
[2017-12-27] MEDS: PHENYLEPHRINE INJ 20 MG in SODIUM CHL 0.9% 250 ML IV SCH ×3 (04:27→21:07)
[2017-12-27 05:45] LABS: Eosinophils # (auto) 0.3 uL; Monocytes # (auto) 0.6 uL
[2017-12-27 05:47] LABS: Basophils # (auto) 0 uL; Basophils % (auto) 0.5 % (0.0-2.0); Eosinophils % (auto) 2.6 % (0.0-7.0); Hematocrit 20.4 % (36.0-46.0); Lymphocytes # (auto) 1.1 uL; Lymphocytes % (auto) 10.5 % (10.0-50.0); Mean Corpuscular Hemoglobin 30.1 pg (28.0-32.0); Mean Corpuscular Volume 88.3 fL (80.0-100.0); Monocytes % (auto) 5.6 % (0.0-12.0); Neutrophils # (auto) 8.6 uL; Neutrophils % (auto) 80.8 % (37.0-80.0); Platelet Count (auto) 166 10^3/uL (140-450); Red Blood Cells 2.31 10^6/uL (4.0-5.20); Red Cell Distribution Width 18.2 % (11.8-14.3); White Blood Cell 10.6 10^3/uL (4.4-10.8)
[2017-12-27 05:53] LABS: BUN/Creatinine Ratio 18.3; Calcium 8.5 mg/dL (8.5-10.1); Potassium 3.5 mmol/L (3.5-5.1)
[2017-12-27 05:54] LABS: Hemoglobin 6.9 g/dL (12.2-16.2)
[2017-12-27] MEDS: NIFEdipine 10 MG CAP PO SCH ×3 (06:00→22:00)
[2017-12-27] MEDS: ACCU-CHEK COMFORT CURVE STRIP VI SCH ×5 (06:45→23:37)
[2017-12-27] MEDS: InsuLIN REG 1unit/0.01ml Soln (100units/ml) SC SCH ×5 (06:53→23:37)
[2017-12-27] MEDS: CARVEDILOL 3.125 MG TAB PO SCH ×2 (09:38→22:00)
[2017-12-27] MEDS: SODIUM CHLOR 0.9% PF (SALINE LOCK) 10ML VIAL/SYR IV SCH ×2 (09:45→22:00)
[2017-12-27] MEDS: DOCUSATE ORAL LIQUID 100 MG/10 ML UD GT SCH ×2 (09:45→22:00)
[2017-12-27] MEDS: PANTOPRAZOLE 40 MG/10 ML VIAL IV SCH (09:45)
[2017-12-27] MEDS: FLORASTOR (S. BOULARDII) 250 MG CAP PO SCH (09:46)
[2017-12-27] MEDS: AMIODARONE HCL 200 MG TAB PO SCH (09:46)
[2017-12-27] MEDS: FUROSEMIDE 40 MG TAB PO SCH (10:23)
[2017-12-27] MEDS: NOREPINEPHRINE 8 MG/250ML KIT 250 ML IV SCH (11:36)
[2017-12-27] MEDS ORDERED: VANCOMYCIN 1GM/250ML 250 ML IV ONE (15:00)
[2017-12-27] MEDS: ACETAMINOPHEN 650 mg PER 20 mL UD GT PRN (18:27)
[2017-12-27] MEDS: Glucerna 1.2 Cal 1Liter BOTTLE GT SCH (20:47)
[2017-12-27] MEDS: LACTULOSE 20Gm/30ML SOLN PO PRN (21:30)
[2017-12-27] MEDS: ATORVASTATIN 20 MG TAB PO SCH (22:00)
[2017-12-28] VITALS (101 sets, daily range): BP systolic 86–125; BP diastolic 36–104
[2017-12-28] MEDS: MIDAZOLAM DRIP 50 mg/50mL 50 ML IV SCH ×3 (01:20→22:15)
[2017-12-28] MEDS: PIPERACILLIN-TAZOB 2.25GM 50 ML IV SCH ×3 (03:30→20:00)
[2017-12-28 05:08] LABS: Hematocrit 25.1 % (36.0-46.0); Hemoglobin 8.4 g/dL (12.2-16.2); Neutrophils # (auto) 8.3 uL; Nucleated Red Blood Cells % 0.1 %
[2017-12-28 05:14] LABS: Basophils # (auto) 0.1 uL; Basophils % (auto) 0.6 % (0.0-2.0); Eosinophils # (auto) 0.2 uL; Eosinophils % (auto) 2.3 % (0.0-7.0); Lymphocytes % (auto) 9.7 % (10.0-50.0); Mean Corpuscular Hemoglobin 30.5 pg (28.0-32.0); Mean Corpuscular Hgb Conc. 33.6 g/dL (32.0-36.0); Mean Corpuscular Volume 90.7 fL (80.0-100.0); Monocytes # (auto) 0.5 uL; Monocytes % (auto) 5.4 % (0.0-12.0); Platelet Count (auto) 154 10^3/uL (140-450); Red Blood Cells 2.77 10^6/uL (4.0-5.20); Red Cell Distribution Width 17.8 % (11.8-14.3); White Blood Cell 10.1 10^3/uL (4.4-10.8)
[2017-12-28] MEDS: PHENYLEPHRINE INJ 20 MG in SODIUM CHL 0.9% 250 ML IV SCH (05:19)
[2017-12-28] MEDS: NIFEdipine 10 MG CAP PO SCH ×3 (05:19→22:00)
[2017-12-28 05:23] LABS: BUN/Creatinine Ratio 17.3; Calcium 8.5 mg/dL (8.5-10.1); Potassium 3.3 mmol/L (3.5-5.1)
[2017-12-28] MEDS: InsuLIN REG 1unit/0.01ml Soln (100units/ml) SC SCH ×3 (05:45→18:00)
[2017-12-28] MEDS: ACCU-CHEK COMFORT CURVE STRIP VI SCH ×3 (05:46→18:00)
[2017-12-28] MEDS: ACETYLCYSTEINE 10 %(100MG/ML) SOL 4ML NEB SCH ×3 (05:59→19:20)
[2017-12-28] MEDS: ALBUTEROL SULF 2.5 MG/0.5ML(0.5%) NEB SOLN NEB SCH ×3 (05:59→19:20)
[2017-12-28] MEDS: IPRATROPIUM BROM 0.5 MG/2.5ML INH SOL NEB SCH ×3 (05:59→19:20)
[2017-12-28] MEDS ORDERED: POTASSIUM EFFERVESENT TAB 25 MEQ GT ONE (07:15)
[2017-12-28] MEDS: CARVEDILOL 3.125 MG TAB PO SCH ×2 (10:00→22:12)
[2017-12-28] MEDS: FUROSEMIDE 40 MG TAB PO SCH (10:00)
[2017-12-28] MEDS: PANTOPRAZOLE 40 MG/10 ML VIAL IV SCH (10:08)
[2017-12-28] MEDS: DOCUSATE ORAL LIQUID 100 MG/10 ML UD GT SCH ×2 (10:08→22:12)
[2017-12-28] MEDS: FLORASTOR (S. BOULARDII) 250 MG CAP PO SCH (10:09)
[2017-12-28] MEDS: SODIUM CHLOR 0.9% PF (SALINE LOCK) 10ML VIAL/SYR IV SCH ×2 (10:09→22:14)
[2017-12-28] MEDS: AMIODARONE HCL 200 MG TAB PO SCH (10:09)
[2017-12-28] MEDS: NOREPINEPHRINE 8 MG/250ML KIT 250 ML IV SCH (15:19)
[2017-12-28] MEDS: ACETAMINOPHEN 650 mg PER 20 mL UD GT PRN (16:38)
[2017-12-28] MEDS: ATORVASTATIN 20 MG TAB PO SCH (22:12)
[2017-12-29] VITALS (97 sets, daily range): BP systolic 85–141; BP diastolic 30–83
[2017-12-29 03:55] LABS: Basophils # (auto) 0 uL; Eosinophils # (auto) 0.3 uL; Mean Corpuscular Hgb Conc. 34.2 g/dL (32.0-36.0); Monocytes # (auto) 0.6 uL; Red Cell Distribution Width 18.3 % (11.8-14.3); White Blood Cell 8.8 10^3/uL (4.4-10.8)
[2017-12-29 03:58] LABS: Basophils % (auto) 0.6 % (0.0-2.0); Hematocrit 24.2 % (36.0-46.0); Hemoglobin 8.3 g/dL (12.2-16.2); Lymphocytes % (auto) 11.6 % (10.0-50.0); Mean Corpuscular Volume 90.4 fL (80.0-100.0); Monocytes % (auto) 6.4 % (0.0-12.0); Neutrophils # (auto) 6.9 uL; Neutrophils % (auto) 78.4 % (37.0-80.0); Platelet Count (auto) 150 10^3/uL (140-450); Red Blood Cells 2.68 10^6/uL (4.0-5.20)
[2017-12-29] MEDS: PIPERACILLIN-TAZOB 2.25GM 50 ML IV SCH ×3 (04:00→20:00)
[2017-12-29 04:06] LABS: BUN/Creatinine Ratio 18.1; Calcium 8.7 mg/dL (8.5-10.1)
[2017-12-29] MEDS: NIFEdipine 10 MG CAP PO SCH ×3 (06:00→22:00)
[2017-12-29] MEDS: InsuLIN REG 1unit/0.01ml Soln (100units/ml) SC SCH ×4 (06:00→18:00)
[2017-12-29] MEDS: ACCU-CHEK COMFORT CURVE STRIP VI SCH ×5 (06:00→23:48)
[2017-12-29] MEDS: ALBUTEROL SULF 2.5 MG/0.5ML(0.5%) NEB SOLN NEB SCH ×4 (06:05→18:23)
[2017-12-29] MEDS: ACETYLCYSTEINE 10 %(100MG/ML) SOL 4ML NEB SCH ×3 (06:06→18:23)
[2017-12-29] MEDS: IPRATROPIUM BROM 0.5 MG/2.5ML INH SOL NEB SCH ×3 (06:06→18:23)
[2017-12-29] MEDS: FLORASTOR (S. BOULARDII) 250 MG CAP PO SCH (10:00)
[2017-12-29] MEDS: DOCUSATE ORAL LIQUID 100 MG/10 ML UD GT SCH ×2 (10:00→22:00)
[2017-12-29] MEDS: SODIUM CHLOR 0.9% PF (SALINE LOCK) 10ML VIAL/SYR IV SCH ×2 (10:00→22:00)
[2017-12-29] MEDS: CARVEDILOL 3.125 MG TAB PO SCH ×2 (10:00→22:00)
[2017-12-29] MEDS: AMIODARONE HCL 200 MG TAB PO SCH (10:00)
[2017-12-29] MEDS: FUROSEMIDE 40 MG TAB PO SCH (10:00)
[2017-12-29] MEDS: PANTOPRAZOLE 40 MG/10 ML VIAL IV SCH (10:00)
[2017-12-29 11:37] LABS: INR 0.99 (0.9-1.15); Partial Thromboplastin Time 25.4 sec (23.78-33.04); Prothrombin Time 10.6 sec (9.27-12.13)
[2017-12-29] MEDS ORDERED: HYDROcodone-ACET 10/325MG TAB PO PRN (11:45)
[2017-12-29] MEDS: NOREPINEPHRINE 8 MG/250ML KIT 250 ML IV SCH (15:19)
[2017-12-29] MEDS: MIDAZOLAM DRIP 50 mg/50mL 50 ML IV SCH (16:04)
[2017-12-29] MEDS: ATORVASTATIN 20 MG TAB PO SCH (22:00)
[2017-12-30] VITALS (100 sets, daily range): BP systolic 77–144; BP diastolic 39–93
[2017-12-30] MEDS: ACETYLCYSTEINE 10 %(100MG/ML) SOL 4ML NEB SCH ×3 (00:17→18:31)
[2017-12-30] MEDS: ALBUTEROL SULF 2.5 MG/0.5ML(0.5%) NEB SOLN NEB SCH ×4 (00:17→18:31)
[2017-12-30] MEDS: IPRATROPIUM BROM 0.5 MG/2.5ML INH SOL NEB SCH ×4 (00:22→18:31)
[2017-12-30 03:44] LABS: Basophils # (auto) 0.1 uL; Basophils % (auto) 0.9 % (0.0-2.0); Eosinophils # (auto) 0.3 uL; Lymphocytes # (auto) 1.2 uL; Mean Corpuscular Hemoglobin 30.2 pg (28.0-32.0); Monocytes # (auto) 0.4 uL
[2017-12-30 03:46] LABS: Eosinophils % (auto) 4.5 % (0.0-7.0); Hemoglobin 8.2 g/dL (12.2-16.2); Mean Corpuscular Hgb Conc. 32.9 g/dL (32.0-36.0); Mean Corpuscular Volume 91.9 fL (80.0-100.0); Monocytes % (auto) 7.3 % (0.0-12.0); Neutrophils # (auto) 4.1 uL; Neutrophils % (auto) 67.3 % (37.0-80.0); Nucleated Red Blood Cells % 0.1 %; Platelet Count (auto) 165 10^3/uL (140-450); Red Blood Cells 2.72 10^6/uL (4.0-5.20); White Blood Cell 6.2 10^3/uL (4.4-10.8)
[2017-12-30] MEDS: PIPERACILLIN-TAZOB 2.25GM 50 ML IV SCH ×3 (04:00→20:06)
[2017-12-30 04:02] LABS: Albumin 2.1 g/dL (3.4-5.0); Calcium 8.6 mg/dL (8.5-10.1); Potassium 3.7 mmol/L (3.5-5.1)
[2017-12-30 04:15] LABS: Bilirubin, Total 1.9 mg/dL (0.2-1.0); Total Protein 5.9 g/dL (6.4-8.2)
[2017-12-30] MEDS: NIFEdipine 10 MG CAP PO SCH ×3 (06:00→22:00)
[2017-12-30] MEDS: ACCU-CHEK COMFORT CURVE STRIP VI SCH ×3 (06:00→18:05)
[2017-12-30] MEDS ORDERED: FUROSEMIDE 20 MG/2 ML VIAL IV ONE (06:00)
[2017-12-30] MEDS: InsuLIN REG 1unit/0.01ml Soln (100units/ml) SC SCH ×4 (06:00→18:05)
[2017-12-30] MEDS: SODIUM CHLOR 0.9% PF (SALINE LOCK) 10ML VIAL/SYR IV SCH ×2 (10:00→21:59)
[2017-12-30] MEDS: CARVEDILOL 3.125 MG TAB PO SCH ×2 (10:00→22:00)
[2017-12-30] MEDS: PANTOPRAZOLE 40 MG/10 ML VIAL IV SCH (10:31)
[2017-12-30] MEDS: DOCUSATE ORAL LIQUID 100 MG/10 ML UD GT SCH ×2 (10:31→21:59)
[2017-12-30] MEDS: FUROSEMIDE 40 MG TAB PO SCH (10:31)
[2017-12-30] MEDS: FLORASTOR (S. BOULARDII) 250 MG CAP PO SCH (10:32)
[2017-12-30] MEDS: AMIODARONE HCL 200 MG TAB PO SCH (10:32)
[2017-12-30 14:22] LABS: Band Neutrophils % (manual) 0; Basophils % (manual) 0 (0.0-2.0); Blast Cells 0; Metamyelocytes % 0; Myelocytes % 0; Promyelocytes % 0; Reactive Lymphocytes 0
[2017-12-30 14:27] LABS: Nucleated Red Blood Cells % 0.1 %; Platelet Count (auto) 184 10^3/uL (140-450)
[2017-12-30] MEDS ORDERED: LIDOCAINE 2% (LOCAL ANESTH.) PF 5ml SDV ONE ×2 (14:33→14:36)
[2017-12-30 14:40] LABS: Eosinophils % (manual) 4 (0-7); Lymphocytes % (manual) 17 (10.0-50.0); Monocytes % (manual) 6 (0-12); White Blood Cell 6.4 10^3/uL (4.4-10.8)
[2017-12-30] MEDS: NOREPINEPHRINE 8 MG/250ML KIT 250 ML IV SCH (15:19)
[2017-12-30] MEDS: Glucerna 1.2 Cal 1Liter BOTTLE GT SCH (21:29)
[2017-12-30] MEDS: ATORVASTATIN 20 MG TAB PO SCH (21:59)
[2017-12-31] VITALS (105 sets, daily range): BP systolic 83–154; BP diastolic 23–101
[2017-12-31] MEDS: ALBUTEROL SULF 2.5 MG/0.5ML(0.5%) NEB SOLN NEB SCH ×4 (00:06→18:35)
[2017-12-31] MEDS: IPRATROPIUM BROM 0.5 MG/2.5ML INH SOL NEB SCH ×4 (00:06→18:35)
[2017-12-31] MEDS: ACETYLCYSTEINE 10 %(100MG/ML) SOL 4ML NEB SCH ×4 (00:06→18:35)
[2017-12-31] MEDS: ACCU-CHEK COMFORT CURVE STRIP VI SCH ×5 (00:11→23:56)
[2017-12-31] MEDS: PIPERACILLIN-TAZOB 2.25GM 50 ML IV SCH ×3 (04:09→20:24)
[2017-12-31 04:18] LABS: BUN/Creatinine Ratio 17.8; Bilirubin, Total 1.8 mg/dL (0.2-1.0); Calcium 8.6 mg/dL (8.5-10.1); Magnesium 2.4 mg/dL (1.6-2.6); Potassium 3.2 mmol/L (3.5-5.1)
[2017-12-31] MEDS ORDERED: POTASSIUM CHL 20MEQ/100ML 100 ML IV ONE (05:00)
[2017-12-31] MEDS: NIFEdipine 10 MG CAP PO SCH ×3 (05:47→21:27)
[2017-12-31] MEDS: InsuLIN REG 1unit/0.01ml Soln (100units/ml) SC SCH ×5 (05:47→23:56)
[2017-12-31] MEDS: FLORASTOR (S. BOULARDII) 250 MG CAP PO SCH (09:34)
[2017-12-31] MEDS: FUROSEMIDE 40 MG TAB PO SCH (09:35)
[2017-12-31] MEDS: AMIODARONE HCL 200 MG TAB PO SCH (09:37)
[2017-12-31] MEDS: SODIUM CHLOR 0.9% PF (SALINE LOCK) 10ML VIAL/SYR IV SCH ×2 (09:37→21:31)
[2017-12-31] MEDS: PANTOPRAZOLE 40 MG/10 ML VIAL IV SCH (09:38)
[2017-12-31] MEDS: CARVEDILOL 3.125 MG TAB PO SCH ×2 (09:38→21:31)
[2017-12-31] MEDS: DOCUSATE ORAL LIQUID 100 MG/10 ML UD GT SCH ×2 (09:38→21:31)
[2017-12-31] MEDS ORDERED: FUROSEMIDE 40 MG/4 ML VIAL IV ONE (14:15)
[2017-12-31] MEDS ORDERED: AMIODARONE HCL (50 MG/ ML) 3 ML VIAL IV ONE (14:53)
[2017-12-31] MEDS ORDERED: ACETAMINOPHEN 650 mg PER 20 mL UD GT PRN (15:15)
[2017-12-31] MEDS ORDERED: AMIODARONE HCL 900 MG in DEXTROSE 500 ML IV SCH ×2 (15:17→21:17)
[2017-12-31] MEDS: NOREPINEPHRINE 8 MG/250ML KIT 250 ML IV SCH (15:19)
[2017-12-31] MEDS: HEPARIN SODIUM (PORCINE) 5000 UNITS/ML 1ML VIAL SC SCH (21:17)
[2017-12-31] MEDS: ATORVASTATIN 20 MG TAB PO SCH (21:31)
[2018-01-01] VITALS (102 sets, daily range): BP systolic 98–158; BP diastolic 42–90
[2018-01-01] MEDS: IPRATROPIUM BROM 0.5 MG/2.5ML INH SOL NEB SCH ×4 (00:31→18:18)
[2018-01-01] MEDS: ACETYLCYSTEINE 10 %(100MG/ML) SOL 4ML NEB SCH ×4 (00:31→18:18)
[2018-01-01] MEDS: ALBUTEROL SULF 2.5 MG/0.5ML(0.5%) NEB SOLN NEB SCH ×4 (00:31→18:18)
[2018-01-01] MEDS: PIPERACILLIN-TAZOB 2.25GM 50 ML IV SCH ×3 (03:29→21:00)
[2018-01-01 03:59] LABS: Eosinophils # (auto) 0.3 uL; Eosinophils % (auto) 5.4 % (0.0-7.0); Hemoglobin 8.4 g/dL (12.2-16.2); Monocytes # (auto) 0.5 uL; White Blood Cell 5.5 10^3/uL (4.4-10.8)
[2018-01-01 04:02] LABS: Basophils # (auto) 0.1 uL; Hematocrit 25.1 % (36.0-46.0); Lymphocytes % (auto) 17.8 % (10.0-50.0); Mean Corpuscular Hemoglobin 30.6 pg (28.0-32.0); Mean Corpuscular Hgb Conc. 33.6 g/dL (32.0-36.0); Mean Corpuscular Volume 91.2 fL (80.0-100.0); Monocytes % (auto) 9.5 % (0.0-12.0); Neutrophils # (auto) 3.7 uL; Neutrophils % (auto) 66.3 % (37.0-80.0); Platelet Count (auto) 198 10^3/uL (140-450); Red Blood Cells 2.75 10^6/uL (4.0-5.20); Red Cell Distribution Width 19.3 % (11.8-14.3)
[2018-01-01 04:20] LABS: Albumin 2.3 g/dL (3.4-5.0); BUN/Creatinine Ratio 18.1; Calcium 8.5 mg/dL (8.5-10.1); Potassium 3.5 mmol/L (3.5-5.1)
[2018-01-01 04:22] LABS: Bilirubin, Total 1.7 mg/dL (0.2-1.0); Total Protein 6.3 g/dL (6.4-8.2)
[2018-01-01] MEDS: NIFEdipine 10 MG CAP PO SCH ×3 (05:16→22:00)
[2018-01-01] MEDS: InsuLIN REG 1unit/0.01ml Soln (100units/ml) SC SCH ×3 (06:00→18:00)
[2018-01-01] MEDS: ACCU-CHEK COMFORT CURVE STRIP VI SCH ×3 (06:29→18:01)
[2018-01-01] MEDS: FLORASTOR (S. BOULARDII) 250 MG CAP PO SCH (10:36)
[2018-01-01] MEDS: CARVEDILOL 3.125 MG TAB PO SCH ×2 (10:37→22:22)
[2018-01-01] MEDS: PANTOPRAZOLE 40 MG/10 ML VIAL IV SCH (10:37)
[2018-01-01] MEDS: FUROSEMIDE 40 MG TAB PO SCH (10:37)
[2018-01-01] MEDS: DOCUSATE ORAL LIQUID 100 MG/10 ML UD GT SCH ×2 (10:37→22:20)
[2018-01-01] MEDS: SODIUM CHLOR 0.9% PF (SALINE LOCK) 10ML VIAL/SYR IV SCH ×2 (10:38→22:22)
[2018-01-01] MEDS: HEPARIN SODIUM (PORCINE) 5000 UNITS/ML 1ML VIAL SC SCH ×2 (10:40→22:23)
[2018-01-01] MEDS: NOREPINEPHRINE 8 MG/250ML KIT 250 ML IV SCH (15:19)
[2018-01-01] MEDS: LORazepam 2MG/ML-1ML VIAL IV PRN (19:00)
[2018-01-01] MEDS: HYDROcodone-ACET 10/325MG TAB PO PRN (20:28)
[2018-01-01] MEDS: AMIODARONE HCL 200 MG TAB PO SCH (22:21)
[2018-01-01] MEDS: ATORVASTATIN 20 MG TAB PO SCH (22:22)
[2018-01-02] VITALS (60 sets, daily range): BP systolic 96–159; BP diastolic 47–102
[2018-01-02] MEDS: IPRATROPIUM BROM 0.5 MG/2.5ML INH SOL NEB SCH ×4 (00:49→18:22)
[2018-01-02] MEDS: ALBUTEROL SULF 2.5 MG/0.5ML(0.5%) NEB SOLN NEB SCH ×4 (00:49→18:22)
[2018-01-02] MEDS: ACETYLCYSTEINE 10 %(100MG/ML) SOL 4ML NEB SCH ×4 (00:49→18:22)
[2018-01-02 04:47] LABS: Hematocrit 26.8 % (36.0-46.0); Hemoglobin 8.9 g/dL (12.2-16.2)
[2018-01-02 05:00] LABS: BUN/Creatinine Ratio 18.8; Bilirubin, Total 1.6 mg/dL (0.2-1.0); Calcium 9.1 mg/dL (8.5-10.1); Potassium 3.4 mmol/L (3.5-5.1)
[2018-01-02] MEDS: PIPERACILLIN-TAZOB 2.25GM 50 ML IV SCH ×2 (05:30→12:30)
[2018-01-02] MEDS: HYDROcodone-ACET 10/325MG TAB PO PRN ×2 (05:51→22:43)
[2018-01-02] MEDS: NIFEdipine 10 MG CAP PO SCH ×3 (05:53→21:02)
[2018-01-02] MEDS: ACCU-CHEK COMFORT CURVE STRIP VI SCH ×4 (05:53→18:00)
[2018-01-02] MEDS: InsuLIN REG 1unit/0.01ml Soln (100units/ml) SC SCH ×4 (05:53→18:00)
[2018-01-02] MEDS: PANTOPRAZOLE 40 MG/10 ML VIAL IV SCH (09:45)
[2018-01-02] MEDS: FUROSEMIDE 40 MG TAB PO SCH (09:45)
[2018-01-02] MEDS: DOCUSATE ORAL LIQUID 100 MG/10 ML UD GT SCH ×2 (09:45→20:59)
[2018-01-02] MEDS: FLORASTOR (S. BOULARDII) 250 MG CAP PO SCH (09:45)
[2018-01-02] MEDS: CARVEDILOL 3.125 MG TAB PO SCH ×2 (09:46→21:03)
[2018-01-02] MEDS: AMIODARONE HCL 200 MG TAB PO SCH ×2 (09:47→20:57)
[2018-01-02] MEDS: SODIUM CHLOR 0.9% PF (SALINE LOCK) 10ML VIAL/SYR IV SCH ×2 (09:48→20:57)
[2018-01-02] MEDS: HEPARIN SODIUM (PORCINE) 5000 UNITS/ML 1ML VIAL SC SCH ×2 (09:48→21:01)
[2018-01-02] MEDS ORDERED: CARVEDILOL 3.125 MG TAB PO SCH (10:00)
[2018-01-02] MEDS ORDERED: POTASSIUM EFFERVESENT TAB 25 MEQ PO ONE (14:45)
[2018-01-02] MEDS: LORazepam 2MG/ML-1ML VIAL IV PRN (20:32)
[2018-01-02] MEDS: ATORVASTATIN 20 MG TAB PO SCH (20:55)
[2018-01-03] VITALS (7 sets, daily range): BP systolic 118–149; BP diastolic 65–87
[2018-01-03] MEDS: ACCU-CHEK COMFORT CURVE STRIP VI SCH ×4 (00:04→17:37)
[2018-01-03] MEDS: ALBUTEROL SULF 2.5 MG/0.5ML(0.5%) NEB SOLN NEB SCH ×5 (00:26→23:49)
[2018-01-03] MEDS: IPRATROPIUM BROM 0.5 MG/2.5ML INH SOL NEB SCH ×5 (00:26→23:50)
[2018-01-03] MEDS: ACETYLCYSTEINE 10 %(100MG/ML) SOL 4ML NEB SCH ×5 (00:28→23:50)
[2018-01-03] MEDS: LORazepam 2MG/ML-1ML VIAL IV PRN ×4 (00:45→22:30)
[2018-01-03] MEDS: NIFEdipine 10 MG CAP PO SCH ×3 (05:49→22:00)
[2018-01-03] MEDS: InsuLIN REG 1unit/0.01ml Soln (100units/ml) SC SCH ×4 (05:49→17:37)
[2018-01-03 05:51] LABS: Hematocrit 29.2 % (36.0-46.0); Hemoglobin 9.7 g/dL (12.2-16.2)
[2018-01-03 06:19] LABS: Bilirubin, Total 1.5 mg/dL (0.2-1.0); Calcium 9.3 mg/dL (8.5-10.1); Magnesium 2.3 mg/dL (1.6-2.6); Potassium 3.7 mmol/L (3.5-5.1)
[2018-01-03] MEDS: PANTOPRAZOLE 40 MG/10 ML VIAL IV SCH (09:35)
[2018-01-03] MEDS: AMIODARONE HCL 200 MG TAB PO SCH ×2 (09:36→22:04)
[2018-01-03] MEDS: SODIUM CHLOR 0.9% PF (SALINE LOCK) 10ML VIAL/SYR IV SCH ×2 (09:36→22:09)
[2018-01-03] MEDS: FLORASTOR (S. BOULARDII) 250 MG CAP PO SCH (09:36)
[2018-01-03] MEDS: FUROSEMIDE 40 MG TAB PO SCH (09:38)
[2018-01-03] MEDS: CARVEDILOL 3.125 MG TAB PO SCH ×2 (09:39→22:05)
[2018-01-03] MEDS: HEPARIN SODIUM (PORCINE) 5000 UNITS/ML 1ML VIAL SC SCH (09:46)
[2018-01-03] MEDS: DOCUSATE ORAL LIQUID 100 MG/10 ML UD GT SCH ×3 (09:46→22:03)
[2018-01-03] MEDS: HYDROcodone-ACET 10/325MG TAB PO PRN ×2 (14:27→20:16)
[2018-01-03] MEDS: ATORVASTATIN 20 MG TAB PO SCH (22:05)
[2018-01-03] MEDS: APIXABAN 2.5 MG TAB PO SCH (22:06)
[2018-01-04] VITALS (8 sets, daily range): BP systolic 102–147; BP diastolic 42–88
[2018-01-04] MEDS: ACCU-CHEK COMFORT CURVE STRIP VI SCH ×4 (00:06→17:46)
[2018-01-04] MEDS: InsuLIN REG 1unit/0.01ml Soln (100units/ml) SC SCH ×4 (00:09→17:46)
[2018-01-04] MEDS: HYDROcodone-ACET 10/325MG TAB PO PRN (02:41)
[2018-01-04 04:51] LABS: Potassium 4.2 mmol/L (3.5-5.1)
[2018-01-04 04:53] LABS: BUN/Creatinine Ratio 19.6
[2018-01-04] MEDS: NIFEdipine 10 MG CAP PO SCH ×3 (06:00→21:51)
[2018-01-04] MEDS: ACETYLCYSTEINE 10 %(100MG/ML) SOL 4ML NEB SCH ×4 (07:20→23:40)
[2018-01-04] MEDS: ALBUTEROL SULF 2.5 MG/0.5ML(0.5%) NEB SOLN NEB SCH ×4 (07:20→23:39)
[2018-01-04] MEDS: IPRATROPIUM BROM 0.5 MG/2.5ML INH SOL NEB SCH ×4 (07:20→23:39)
[2018-01-04] MEDS: FLORASTOR (S. BOULARDII) 250 MG CAP PO SCH (09:31)
[2018-01-04] MEDS: PANTOPRAZOLE 40 MG/10 ML VIAL IV SCH (09:31)
[2018-01-04] MEDS: AMIODARONE HCL 200 MG TAB PO SCH ×2 (09:31→21:54)
[2018-01-04] MEDS: APIXABAN 2.5 MG TAB PO SCH ×2 (09:31→21:50)
[2018-01-04] MEDS: DOCUSATE ORAL LIQUID 100 MG/10 ML UD GT SCH ×3 (09:31→22:00)
[2018-01-04] MEDS: CARVEDILOL 3.125 MG TAB PO SCH ×2 (09:31→21:52)
[2018-01-04] MEDS: SODIUM CHLOR 0.9% PF (SALINE LOCK) 10ML VIAL/SYR IV SCH ×2 (09:31→21:54)
[2018-01-04] MEDS: FUROSEMIDE 40 MG TAB PO SCH (09:32)
[2018-01-04] MEDS: ATORVASTATIN 20 MG TAB PO SCH (21:51)
[2018-01-04] MEDS ORDERED: TEMAZEPAM 15 MG CAP PO ONE (22:00)
[2018-01-05] VITALS: BP 108/60
[2018-01-05] MEDS: ACCU-CHEK COMFORT CURVE STRIP VI SCH ×4 (00:33→17:31)
[2018-01-05 04:00] VITALS: BP 121/76
[2018-01-05] MEDS: NIFEdipine 10 MG CAP PO SCH ×3 (05:47→22:00)
[2018-01-05 05:55] LABS: Basophils # (auto) 0.1 uL; Basophils % (auto) 1.1 % (0.0-2.0); Eosinophils # (auto) 0.5 uL; Eosinophils % (auto) 7.2 % (0.0-7.0); Hematocrit 27.5 % (36.0-46.0); Lymphocytes # (auto) 1.4 uL; Lymphocytes % (auto) 18.5 % (10.0-50.0); Mean Corpuscular Hemoglobin 30.5 pg (28.0-32.0); Mean Corpuscular Hgb Conc. 32.6 g/dL (32.0-36.0); Mean Corpuscular Volume 93.5 fL (80.0-100.0); Monocytes # (auto) 0.6 uL; Monocytes % (auto) 7.5 % (0.0-12.0); Neutrophils % (auto) 65.7 % (37.0-80.0); Nucleated Red Blood Cells % 0.2 %; Platelet Count (auto) 323 10^3/uL (140-450); Red Blood Cells 2.94 10^6/uL (4.0-5.20); Red Cell Distribution Width 19.9 % (11.8-14.3); White Blood Cell 7.6 10^3/uL (4.4-10.8)
[2018-01-05] MEDS: InsuLIN REG 1unit/0.01ml Soln (100units/ml) SC SCH ×4 (06:02→17:31)
[2018-01-05 06:10] LABS: BUN/Creatinine Ratio 22.4; Calcium 9.1 mg/dL (8.5-10.1); Magnesium 2.5 mg/dL (1.6-2.6); Potassium 3.8 mmol/L (3.5-5.1)
[2018-01-05] MEDS: ALBUTEROL SULF 2.5 MG/0.5ML(0.5%) NEB SOLN NEB SCH ×3 (07:34→19:32)
[2018-01-05] MEDS: ACETYLCYSTEINE 10 %(100MG/ML) SOL 4ML NEB SCH ×3 (07:34→18:00)
[2018-01-05] MEDS: IPRATROPIUM BROM 0.5 MG/2.5ML INH SOL NEB SCH ×3 (07:34→19:32)
[2018-01-05 08:00] VITALS: BP 109/67
[2018-01-05] MEDS: DOCUSATE ORAL LIQUID 100 MG/10 ML UD GT SCH ×3 (10:00→22:37)
[2018-01-05] MEDS ORDERED: LACTULOSE 20Gm/30ML SOLN PO PRN (11:00)
[2018-01-05] MEDS: PANTOPRAZOLE 40 MG/10 ML VIAL IV SCH (11:17)
[2018-01-05] MEDS: SODIUM CHLOR 0.9% PF (SALINE LOCK) 10ML VIAL/SYR IV SCH ×2 (11:18→22:42)
[2018-01-05] MEDS: APIXABAN 2.5 MG TAB PO SCH ×2 (11:18→22:41)
[2018-01-05] MEDS: CARVEDILOL 3.125 MG TAB PO SCH ×2 (11:18→22:38)
[2018-01-05] MEDS: AMIODARONE HCL 200 MG TAB PO SCH ×2 (11:18→22:39)
[2018-01-05 11:53] VITALS: BP 132/74
[2018-01-05] MEDS: HYDROcodone-ACET 10/325MG TAB PO PRN ×2 (17:32→21:37)
[2018-01-05 22:00] VITALS: BP 109/67
[2018-01-05] MEDS: ATORVASTATIN 20 MG TAB PO SCH (22:40)
[2018-01-05] MEDS: LORazepam 2MG/ML-1ML VIAL IV PRN (23:04)
[2018-01-06] VITALS (9 sets, daily range): BP systolic 114–145; BP diastolic 56–82
[2018-01-06] MEDS: IPRATROPIUM BROM 0.5 MG/2.5ML INH SOL NEB SCH ×4 (00:07→18:48)
[2018-01-06] MEDS: ALBUTEROL SULF 2.5 MG/0.5ML(0.5%) NEB SOLN NEB SCH ×4 (00:07→18:48)
[2018-01-06] MEDS: ACETYLCYSTEINE 10 %(100MG/ML) SOL 4ML NEB SCH ×4 (00:08→18:48)
[2018-01-06] MEDS: InsuLIN REG 1unit/0.01ml Soln (100units/ml) SC SCH ×5 (05:55→23:57)
[2018-01-06] MEDS: ACCU-CHEK COMFORT CURVE STRIP VI SCH ×5 (05:55→23:57)
[2018-01-06] MEDS: NIFEdipine 10 MG CAP PO SCH ×3 (06:11→22:00)
[2018-01-06 06:24] LABS: Potassium 3.7 mmol/L (3.5-5.1)
[2018-01-06 06:29] LABS: BUN/Creatinine Ratio 24.2; Calcium 9.2 mg/dL (8.5-10.1)
[2018-01-06] MEDS: DOCUSATE ORAL LIQUID 100 MG/10 ML UD GT SCH ×3 (10:00→23:20)
[2018-01-06] MEDS: SODIUM CHLOR 0.9% PF (SALINE LOCK) 10ML VIAL/SYR IV SCH ×2 (10:04→23:21)
[2018-01-06] MEDS: PANTOPRAZOLE 40 MG/10 ML VIAL IV SCH (10:04)
[2018-01-06] MEDS: CARVEDILOL 3.125 MG TAB PO SCH ×2 (10:04→23:23)
[2018-01-06] MEDS: APIXABAN 2.5 MG TAB PO SCH ×2 (10:04→23:27)
[2018-01-06] MEDS: AMIODARONE HCL 200 MG TAB PO SCH (10:05)
[2018-01-06] MEDS: FUROSEMIDE 40 MG TAB PO SCH (10:05)
[2018-01-06] MEDS ORDERED: ALBUAER3 IN (11:28)
[2018-01-06] MEDS ORDERED: DOCU-94 PO (11:28)
[2018-01-06] MEDS ORDERED: LISINOPRIL 10 MG TAB PO ONE (12:45)
[2018-01-06] MEDS: LORazepam 2MG/ML-1ML VIAL IV PRN (21:08)
[2018-01-06] MEDS ORDERED: ALBUTEROL SULF 2.5 MG/0.5ML(0.5%) NEB SOLN NEB PRN (21:30)
[2018-01-06] MEDS: ATORVASTATIN 20 MG TAB PO SCH (23:27)
[2018-01-07] MEDS: IPRATROPIUM BROM 0.5 MG/2.5ML INH SOL NEB SCH ×4 (00:56→19:41)
[2018-01-07] MEDS: ACETYLCYSTEINE 10 %(100MG/ML) SOL 4ML NEB SCH ×4 (00:56→19:42)
[2018-01-07] MEDS: ALBUTEROL SULF 2.5 MG/0.5ML(0.5%) NEB SOLN NEB SCH ×4 (00:56→19:41)
[2018-01-07] MEDS: LORazepam 2MG/ML-1ML VIAL IV PRN ×3 (01:55→19:53)
[2018-01-07 02:49] VITALS: BP 145/76
[2018-01-07 04:56] VITALS: BP 113/61
[2018-01-07] MEDS: NIFEdipine 10 MG CAP PO SCH ×3 (06:00→23:23)
[2018-01-07] MEDS: InsuLIN REG 1unit/0.01ml Soln (100units/ml) SC SCH ×3 (06:00→18:18)
[2018-01-07] MEDS: ACCU-CHEK COMFORT CURVE STRIP VI SCH ×3 (06:24→18:18)
[2018-01-07 09:00] VITALS: BP 114/65
[2018-01-07] MEDS: DOCUSATE ORAL LIQUID 100 MG/10 ML UD GT SCH ×3 (10:00→23:21)
[2018-01-07] MEDS: LISINOPRIL 10 MG TAB PO SCH (10:00)
[2018-01-07] MEDS: PANTOPRAZOLE 40 MG/10 ML VIAL IV SCH (10:02)
[2018-01-07] MEDS: APIXABAN 2.5 MG TAB PO SCH ×2 (10:02→23:22)
[2018-01-07] MEDS: AMIODARONE HCL 200 MG TAB PO SCH (10:06)
[2018-01-07] MEDS: SODIUM CHLOR 0.9% PF (SALINE LOCK) 10ML VIAL/SYR IV SCH ×2 (10:13→23:21)
[2018-01-07] MEDS: CARVEDILOL 3.125 MG TAB PO SCH ×2 (12:48→23:22)
[2018-01-07] MEDS: FUROSEMIDE 40 MG TAB PO SCH (12:48)
[2018-01-07 13:00] VITALS: BP 136/76
[2018-01-07 14:26] LABS: Calcium 9.2 mg/dL (8.5-10.1)
[2018-01-07 14:29] LABS: BUN/Creatinine Ratio 27.2
[2018-01-07] MEDS ORDERED: MILRINONE 4 MG in SODIUM CHL 0.9% 50 ML IV ONE (14:30)
[2018-01-07] MEDS ORDERED: MILRINONE 20MG/100ML 100 ML IV SCH (14:30)
[2018-01-07 16:46] VITALS: BP 114/61
[2018-01-07 21:59] VITALS: BP 124/78
[2018-01-07] MEDS: ATORVASTATIN 20 MG TAB PO SCH (23:22)
[2018-01-08] MEDS: ACCU-CHEK COMFORT CURVE STRIP VI SCH ×5 (00:36→23:41)
[2018-01-08] MEDS: ALBUTEROL SULF 2.5 MG/0.5ML(0.5%) NEB SOLN NEB SCH ×4 (00:42→18:34)
[2018-01-08] MEDS: ACETYLCYSTEINE 10 %(100MG/ML) SOL 4ML NEB SCH ×4 (00:42→18:34)
[2018-01-08] MEDS: IPRATROPIUM BROM 0.5 MG/2.5ML INH SOL NEB SCH ×4 (00:42→18:34)
[2018-01-08 05:37] VITALS: BP 122/69
[2018-01-08] MEDS: NIFEdipine 10 MG CAP PO SCH ×3 (05:44→21:14)
[2018-01-08] MEDS: InsuLIN REG 1unit/0.01ml Soln (100units/ml) SC SCH ×5 (05:44→23:41)
[2018-01-08 09:00] VITALS: BP 114/65
[2018-01-08] MEDS: AMIODARONE HCL 200 MG TAB PO SCH (10:15)
[2018-01-08] MEDS: PANTOPRAZOLE 40 MG/10 ML VIAL IV SCH (10:15)
[2018-01-08] MEDS: DOCUSATE ORAL LIQUID 100 MG/10 ML UD GT SCH ×2 (10:15→21:14)
[2018-01-08] MEDS: SODIUM CHLOR 0.9% PF (SALINE LOCK) 10ML VIAL/SYR IV SCH ×2 (10:15→21:16)
[2018-01-08] MEDS: APIXABAN 2.5 MG TAB PO SCH ×2 (10:16→21:15)
[2018-01-08] MEDS: FUROSEMIDE 40 MG TAB PO SCH (10:16)
[2018-01-08] MEDS: CARVEDILOL 3.125 MG TAB PO SCH ×2 (10:16→21:15)
[2018-01-08] MEDS: LISINOPRIL 10 MG TAB PO SCH (10:18)
[2018-01-08 13:00] VITALS: BP 126/60
[2018-01-08] MEDS: HYDROcodone-ACET 10/325MG TAB PO PRN ×2 (15:46→21:15)
[2018-01-08 16:30] VITALS: BP 93/50
[2018-01-08] MEDS: LORazepam 2MG/ML-1ML VIAL IV PRN (21:10)
[2018-01-08] MEDS: ATORVASTATIN 20 MG TAB PO SCH (21:15)
[2018-01-08 22:00] VITALS: BP 125/75
[2018-01-09] MEDS: ALBUTEROL SULF 2.5 MG/0.5ML(0.5%) NEB SOLN NEB SCH ×3 (00:15→12:53)
[2018-01-09] MEDS: IPRATROPIUM BROM 0.5 MG/2.5ML INH SOL NEB SCH ×3 (00:15→12:53)
[2018-01-09] MEDS: ACETYLCYSTEINE 10 %(100MG/ML) SOL 4ML NEB SCH ×3 (00:15→12:54)
[2018-01-09 05:00] VITALS: BP 108/49
[2018-01-09] MEDS: InsuLIN REG 1unit/0.01ml Soln (100units/ml) SC SCH ×2 (05:26→12:35)
[2018-01-09] MEDS: ACCU-CHEK COMFORT CURVE STRIP VI SCH ×2 (05:26→12:32)
[2018-01-09] MEDS: NIFEdipine 10 MG CAP PO SCH (05:28)
[2018-01-09 06:34] LABS: Basophils # (auto) 0.1 uL; Eosinophils # (auto) 0.6 uL; Eosinophils % (auto) 9.3 % (0.0-7.0); Hematocrit 25.6 % (36.0-46.0); Hemoglobin 8.5 g/dL (12.2-16.2); Lymphocytes # (auto) 1.2 uL; Lymphocytes % (auto) 18.4 % (10.0-50.0); Mean Corpuscular Hemoglobin 31.3 pg (28.0-32.0); Mean Corpuscular Hgb Conc. 33.3 g/dL (32.0-36.0); Monocytes # (auto) 0.5 uL; Monocytes % (auto) 8.5 % (0.0-12.0); Neutrophils # (auto) 3.9 uL; Neutrophils % (auto) 62.8 % (37.0-80.0); Platelet Count (auto) 271 10^3/uL (140-450); Red Blood Cells 2.73 10^6/uL (4.0-5.20); White Blood Cell 6.3 10^3/uL (4.4-10.8)
[2018-01-09 06:47] LABS: BUN/Creatinine Ratio 26.6; Calcium 9.2 mg/dL (8.5-10.1); Magnesium 2.2 mg/dL (1.6-2.6); Potassium 4.1 mmol/L (3.5-5.1)
[2018-01-09 06:50] LABS: Red Cell Distribution Width 22.1 % (11.8-14.3)
[2018-01-09 09:04] VITALS: BP 109/53
[2018-01-09 09:33] VITALS: BP 109/53
[2018-01-09] MEDS: APIXABAN 2.5 MG TAB PO SCH (11:33)
[2018-01-09] MEDS: DOCUSATE ORAL LIQUID 100 MG/10 ML UD GT SCH (11:33)
[2018-01-09] MEDS: CARVEDILOL 3.125 MG TAB PO SCH (11:33)
[2018-01-09] MEDS: PANTOPRAZOLE 40 MG/10 ML VIAL IV SCH (11:33)
[2018-01-09] MEDS: AMIODARONE HCL 200 MG TAB PO SCH (11:34)
[2018-01-09] MEDS: FUROSEMIDE 40 MG TAB PO SCH (11:34)
[2018-01-09] MEDS: LISINOPRIL 10 MG TAB PO SCH (11:34)
[2018-01-09] MEDS: SODIUM CHLOR 0.9% PF (SALINE LOCK) 10ML VIAL/SYR IV SCH (11:35)
== END 2018-01-09 13:35 | disposition home health service (06) | DRG 853 ==
LOC: EDBD 19:29 → ER 19:29 → MERGE 19:30 → OVERFLOW 19:30 → ICU WEST 12-14 08:20 → DOU IN ICU 12-21 18:12 → TELE-WESTW 12-22 18:08 → ICU WEST 12-24 20:05 → DOU IN ICU 01-02 15:17 → TELE-WESTW 01-05 16:37
PROVIDERS: ADMIT Nurse Practitioner; ATTEND Internal Medicine
PROC: 5A1955Z Respiratory Ventilation, Greater than 96 Consecutive Hours (ICD-10-PCS; principal; 2017-12-13)
PROC: 0BH17EZ Insertion of Endotracheal Airway into Trachea, Via Natural or Artificial Opening (ICD-10-PCS; 2017-12-13)
PROC: 5A09357 Assistance with Respiratory Ventilation, Less than 24 Consecutive Hours, Continuous Positive Airway Pressure (ICD-10-PCS; 2017-12-13)
PROC: 02HV33Z Insertion of Infusion Device into Superior Vena Cava, Percutaneous Approach (ICD-10-PCS; 2017-12-15)
PROC: 5A12012 Performance of Cardiac Output, Single, Manual (ICD-10-PCS; 2017-12-25)
PROC: 30233N1 Transfusion of Nonautologous Red Blood Cells into Peripheral Vein, Percutaneous Approach (ICD-10-PCS; 2017-12-25)
PROC: 5A1955Z Respiratory Ventilation, Greater than 96 Consecutive Hours (ICD-10-PCS; 2017-12-25)
PROC: 0BH17EZ Insertion of Endotracheal Airway into Trachea, Via Natural or Artificial Opening (ICD-10-PCS; 2017-12-25)
PROC: 0JH608Z Insertion of Defibrillator Generator into Chest Subcutaneous Tissue and Fascia, Open Approach (ICD-10-PCS; 2017-12-26)
PROC: 02HK3KZ Insertion of Defibrillator Lead into Right Ventricle, Percutaneous Approach (ICD-10-PCS; 2017-12-26)
PROC: 02H63KZ Insertion of Defibrillator Lead into Right Atrium, Percutaneous Approach (ICD-10-PCS; 2017-12-26)
PROC: 5A09457 Assistance with Respiratory Ventilation, 24-96 Consecutive Hours, Continuous Positive Airway Pressure (ICD-10-PCS; 2017-12-31)
PROC: 5A09357 Assistance with Respiratory Ventilation, Less than 24 Consecutive Hours, Continuous Positive Airway Pressure (ICD-10-PCS; 2018-01-04)
PROC: 5A09357 Assistance with Respiratory Ventilation, Less than 24 Consecutive Hours, Continuous Positive Airway Pressure (ICD-10-PCS; 2018-01-07)
PROC: 5A09357 Assistance with Respiratory Ventilation, Less than 24 Consecutive Hours, Continuous Positive Airway Pressure (ICD-10-PCS; 2018-01-08)
DX: A41.9 Sepsis, unspecified organism (principal); N17.0 Acute kidney failure with tubular necrosis; J69.0 Pneumonitis due to inhalation of food and vomit; I49.01 Ventricular fibrillation; I46.9 Cardiac arrest, cause unspecified; R65.21 Severe sepsis with septic shock; I50.43 Acute on chronic combined systolic (congestive) and diastolic (congestive) heart failure; J96.22 Acute and chronic respiratory failure with hypercapnia; J96.21 Acute and chronic respiratory failure with hypoxia; I21.A1 Myocardial infarction type 2; N18.4 Chronic kidney disease, stage 4 (severe); I48.92 Unspecified atrial flutter; I13.0 Hypertensive heart and chronic kidney disease with heart failure and stage 1 through stage 4 chronic kidney disease, or unspecified chronic kidney disease; E44.0 Moderate protein-calorie malnutrition; J44.0 Chronic obstructive pulmonary disease with (acute) lower respiratory infection; I42.0 Dilated cardiomyopathy; I47.2 Ventricular tachycardia; N17.9 Acute kidney failure, unspecified; Z66 Do not resuscitate; E11.22 Type 2 diabetes mellitus with diabetic chronic kidney disease; E66.01 Morbid (severe) obesity due to excess calories; D63.8 Anemia in other chronic diseases classified elsewhere; E78.5 Hyperlipidemia, unspecified; F41.9 Anxiety disorder, unspecified; I27.29 Other secondary pulmonary hypertension; E78.00 Pure hypercholesterolemia, unspecified; F17.200 Nicotine dependence, unspecified, uncomplicated; I08.3 Combined rheumatic disorders of mitral, aortic and tricuspid valves; I44.7 Left bundle-branch block, unspecified; I48.0 Paroxysmal atrial fibrillation; K57.30 Diverticulosis of large intestine without perforation or abscess without bleeding; K59.00 Constipation, unspecified; Z51.5 Encounter for palliative care; Z79.01 Long term (current) use of anticoagulants; Z85.3 Personal history of malignant neoplasm of breast; Z86.711 Personal history of pulmonary embolism; Z90.10 Acquired absence of unspecified breast and nipple; Z92.21 Personal history of antineoplastic chemotherapy; Z95.810 Presence of automatic (implantable) cardiac defibrillator; Z99.81 Dependence on supplemental oxygen; Z68.34 Body mass index [BMI] 34.0-34.9, adult
CPT/HCPCS: 31500; 33249; 36415; 36569; 36600; 51702; 70450; 71045; 71046; 71250; 73501; 74176; 76604; 78582; 80048; 80053; 80061; 80202; 81001; 82247; 82805; 82962; 83036; 83540; 83550; 83605; 83615; 83735; 83880; 84132; 84443; 84484; 85014; 85018; 85025; 85048; 85379; 85610; 85730; 86850; 86900; 86901; 86920; 87040; 87070; 87081; 87086; 87205; 92610; 93005; 93306; 94002; 94003; 94640; 94660; 94761; 96365; 96367; 96375; 97110; 97116; 97163; 97530; 99152; 99153; 99291; A6257; C9113; G0378; J0330; J0610; J0690; J0696; J1815; J1956; J2001; J2250; J2543; J3480; J7060